=== PATIENT | male | born 1935 | race Hispanic/Latino ===

== ENCOUNTER 2017-04-28 10:38 | Inpatient (IN) | payer MEDICARE, OTHER ==
[2017-04-28 12:21] LABS: VENOUS BLOOD GAS BASE EXCESS 3.7 mmol/L (0.0-2.0); VENOUS BLOOD GAS PO2 27 mm/Hg (30-55); VENOUS BLOOD PH 7.43 (7.32-7.43)
--- NOTE | 2017-04-28 12:23 | ED PDOC ---
Arrival/HPI - General Chief Complaint: Trauma Time Seen by Provider: 04/28/17 10:58 Historian: Patient - History of Present Illness Narrative History of Present Illness (Text): 04/28/17 12:18 81yo male with PMHx of hypertension biba with complaint of generalized weakness. He states he had cold symptoms the past few days, and when he tried to get out of bed this morning he was took weak and he fell. He denies any focal weakness, pain, fever, chills, nausea, vomiting, abdominal pain, chest pain, dizziness, headache, LOC, any other complaint. Past Medical History - Provider Review Nursing Documentation Reviewed: Yes - Infectious Disease Hx of Infectious Diseases: None - Cardiac Hx Cardiac Disorders: Yes Hx Hypertension: Yes - Pulmonary Hx Respiratory Disorders: No - Neurological Hx Neurological Disorder: No - HEENT Hx HEENT Disorder: No - Renal Hx Renal Disorder: No - Endocrine/Metabolic Hx Endocrine Disorders: No - Hematological/Oncological Hx Blood Disorders: No - Integumentary Hx Dermatological Disorder: No - Musculoskeletal/Rheumatological Hx Musculoskeletal Disorders: No - Gastrointestinal Hx Gastrointestinal Disorders: No - Genitourinary/Gynecological Hx Genitourinary Disorders: No - Psychiatric Hx Psychophysiologic Disorder: No Hx Substance Use: No - Surgical History Hx Orthopedic Surgery: Yes - Anesthesia Hx Anesthesia: Yes Hx Anesthesia Reactions: No Family/Social History - Physician Review Nursing Documentation Reviewed: Yes Family/Social History: Unknown Family HX Smoking Status: Never Smoked Hx Alcohol Use: No Hx Substance Use: No Allergies/Home Meds Allergies/Adverse Reactions: Allergies No Known Allergies Allergy (Verified 02/13/16 15:25) Home Medications: Home Meds Medication Instructions Recorded Confirmed Propranolol [Inderal] 20 mg PO BID 02/13/16 04/28/17 ALPRAZolam [Xanax] 0.25 mg PO BID 04/28/17 04/28/17 Amoxicillin [Amoxil 500 mg Cap] 4 tab PO ONCE 04/28/17 04/28/17 Cholecalciferol [Vitamin D 1000 IU] 50,000 units PO QWK 04/28/17 04/28/17 Cyanocobalamin [Vitamin B12 1000 1,000 mcg SQ QWK 04/28/17 04/28/17 mcg Tab] Febuxostat [Uloric] 40 mg PO DAILY 04/28/17 04/28/17 Rosuvastatin Calcium [Crestor] 5 mg PO DAILY 04/28/17 04/28/17 hydroCHLOROthiazide [Hydrodiuril] 25 mg PO DAILY 04/28/17 04/28/17 Review of Systems - Physician Review All systems were reviewed & negative as marked: Yes - Review of Systems Constitutional: Fatigue Eyes: Normal ENT: Normal Respiratory: Cough. absent: SOB, Sputum, Wheezing Cardiovascular: Normal Gastrointestinal: Normal Genitourinary Male: Normal Musculoskeletal: Normal Skin: Normal Neurological: Normal Endocrine: Normal Hemo/Lymphatic: Normal Psychiatric: Normal Physical Exam Vital Signs Reviewed: Yes Vital Signs Temp Pulse Resp BP Pulse Ox 04/28/17 15:03 99.5 F 90 20 135/75 96 04/28/17 12:13 103.4 F H 100 H 18 162/87 H 99 Temperature: Afebrile Blood Pressure: Normal Pulse: Regular Respiratory Rate: Normal Appearance: Positive for: Well-Appearing, Non-Toxic, Comfortable Pain Distress: None Mental Status: Positive for: Alert and Oriented X 3 - Systems Exam Head: Present: Atraumatic, Normocephalic Pupils: Present: PERRL Extroacular Muscles: Present: EOMI Conjunctiva: Present: Normal Mouth: Present: Moist Mucous Membranes Neck: Present: Normal Range of Motion Respiratory/Chest: Present: Clear to Auscultation, Good Air Exchange. No: Respiratory Distress, Accessory Muscle Use, Wheezes, Decreased Breath Sounds, Rales, Retracting, Rhonchi Cardiovascular: Present: Regular Rate and Rhythm, Normal S1, S2. No: Murmurs Abdomen: Present: Normal Bowel Sounds. No: Tenderness, Distention, Peritoneal Signs Back: Present: Normal Inspection Upper Extremity: Present: Normal Inspection. No: Cyanosis, Edema Lower Extremity: Present: Normal Inspection. No: Edema Neurological: Present: GCS=15, CN II-XII Intact, Speech Normal Skin: Present: Warm, Dry, Normal Color. No: Rashes Psychiatric: Present: Alert, Oriented x 3, Normal Insight, Normal Concentration Medical Decision Making ED Course and Treatment: 04/28/17 19:42 Pt appear weak, plae in ED. He was febrile on presentation and fever improved with antipyretic. Pt met 2/4 septic criteria. Code sepsis was called. He was started on Vanco and Maxipime. His source of sepsis is not clear at this time. His CPK was elevated and he was hydrated. Source of the blood in his UA is unknown at this time. He will need a further evaluation by a urologist. He will be admitted for further treatment and evaluation. Head CT IMPRESSION: No acute intracranial hemorrhage. Moderate to significant confluent white matter ischemic changes which extend peripherally into the white matter tracts of both basal nuclei. Probable dilated perivascular space left inferolateral basal ganglia. The there may also be a few scattered chronic bilateral basal nuclei lacunar type infarcts as well. Moderate generalized volume loss. Mucoperiosteal inflammatory changes within all the paranasal sinuses ; progressed within the ethmoid and frontal sinuses and right chamber sphenoid sinus CXR - Cardiomegaly with small pleural effsion. Case was DW Dr. Cunningham who is covering for Dr. Connor and he aceepted pt. - Lab Interpretations Lab Results: 04/28/17 11:30 04/28/17 12:40 Lab Results 04/28/17 13:34: Urine Color Yellow, Urine Appearance Sl cloudy, Urine pH 5.5, Ur Specific [place] >= 1.030, Urine Protein 100 H, Urine Glucose (UA) Negative, Urine Ketones 40 H, Urine Blood Large H, Urine Nitrate Negative, Urine Bilirubin Negative, Urine Urobilinogen 0.2, Ur Leukocyte Esterase Negative, Urine RBC 25 - 30, Urine WBC 5 - 10, Ur Epithelial Cells 4 - 5, Urine Bacteria Mod 04/28/17 13:10: PT 12.9 H, INR 1.18 H, APTT 25.9 04/28/17 12:40: Sodium 137, Chloride 96 L, Potassium 3.7, Carbon Dioxide 28, Anion Gap 17, BUN 20, Creatinine 1.0, Est GFR ( Amer) > 60, Est GFR (Non- Af Amer) > 60, Random Glucose 104, Calcium 9.5, Total Bilirubin 0.9, AST 86 H, ALT 55, Alkaline Phosphatase 68, Lactate Dehydrogenase 1263 H, Total Creatine Kinase 6650 H, CK-MB (CK-2) 8.8 H, CK-MB (CK-2) % 0.1 L, Troponin I 0.05, Total Protein 7.9, Albumin 4.3, Globulin 3.5, Albumin/Globulin Ratio 1.2 04/28/17 11:30: pO2 27 L, VBG pH 7.43, VBG pCO2 43.0, VBG HCO3 28.5 H, VBG Total CO2 29.8 H, VBG O2 Sat (Calc) 64.4, VBG Base Excess 3.7 H, VBG Potassium 4.2, Sodium 137.0, Chloride 98.0, Glucose 110, Lactate 2.7 H, FiO2 21.0, Venous Blood Potassium 4.2 04/28/17 11:30: Influenza Typ A,B (EIA) Negative for flu a/b 04/28/17 11:30: WBC 9.5, RBC 6.72 H, Hgb 14.5, Hct 43.1, MCV 64.1 L, MCH 21.6 L , MCHC 33.6, RDW 16.8 H, Plt Count 161, Gran % 78.1 H, Lymph % (Auto) 13.1 L, [place] % (Auto) 8.2 H, Eos % (Auto) 0.1 L, Baso % (Auto) 0.5, Gran # 7.38 H, Lymph # 1.2, [place] # 0.8 H, Eos # 0.0, Baso # 0.05 - RAD Interpretation Radiology Orders: 04/28/17 11:53 HEAD W/O CONTRAST [CT] Stat 04/28/17 11:54 CHEST PORTABLE [RAD] Stat - Medication Orders Current Medication Orders: Alprazolam (Xanax) 0.25 mg PO BID MILENA PRN Reason: Protocol Stop: 05/05/17 18:01 Last Admin: 04/28/17 18:53 Dose: 0.25 mg Behavioural Document 04/28/17 18:53 (Rec: 04/28/17 18:53 [id number] Maintenance Maintenance Dose Yes Home Med (Home Med) 1 unit PO DAILY [facility] Sodium Chloride (Sodium Chloride 0.9%) 1,000 mls @ 80 mls/hr IV .[id number] MILENA Last Admin: 04/28/17 18:53 Dose: 80 mls/hr eMAR Start Stop Document 04/28/17 18:53 Y (Rec: 04/28/17 18:53 [id number]) Intravenous Solution Start Date 04/28/17 Start Time 18:53 Propranolol HCl (Inderal) 20 mg PO Q12 MILENA Discontinued Medications Acetaminophen (Tylenol 325mg Tab) 975 mg PO STAT STA Stop: 04/28/17 12:49 Last Admin: 04/28/17 13:40 Dose: 975 mg MAR Pain/Vitals Document 04/28/17 13:40 EQ (Rec: 04/28/17 13:40 EQ [id number]) Pain Reassessment Is This A Pain ReAssessment? No Sleep Is patient sleeping during reassessment? No Presence of Pain Presence of Pain Yes Sodium Chloride (Sodium Chloride 0.9%) 1,000 mls @ 999 mls/hr IV .Q1H1M STA Stop: 04/28/17 13:37 Last Admin: 04/28/17 13:40 Dose: 999 mls/hr eMAR Start Stop Document 04/28/17 13:40 EQ (Rec: 04/28/17 13:40 EQ [id number]) Intravenous Solution Start Date 04/28/17 Start Time 13:40 Cefepime HCl (Maxipime 2gm) 2 gm in 100 mls @ 100 mls/hr IVPB STAT STA PRN Reason: Protocol Stop: 04/28/17 14:22 Last Admin: 04/28/17 13:55 Dose: 100 mls/hr eMAR Start Stop Document 04/28/17 13:55 EQ (Rec: 04/28/17 13:55 EQ [id number]) Intravenous Solution Start Date 04/28/17 Start Time 13:55 Vancomycin HCl (Vancomycin 1gm) 1 gm in 250 mls @ 167 mls/hr IVPB STAT STA PRN Reason: Protocol Stop: 04/28/17 14:51 Last Admin: 04/28/17 15:04 Dose: 167 mls/hr eMAR Start Stop Document 04/28/17 15:04 EQ (Rec: 04/28/17 15:04 EQ [id number]) Intravenous Solution Start Date 04/28/17 Start Time 15:04 Disposition/Present on Arrival - Present on Arrival Any Indicators Present on Arrival: No History of DVT/PE: No History of Uncontrolled Diabetes: No Urinary Catheter: No History of Decub. Ulcer: No History Surgical Site Infection Following: None - Disposition Have Diagnosis and Disposition been Completed?: Yes Diagnosis: Sepsis, Dehydration, Rhabdomyolysis, Sinusitis Disposition: HOSPITALIZED Disposition Time: 15:25 Patient Plan: Admission Patient Problems: Current Active Problems Problem Status Onset Dehydration Acute Rhabdomyolysis Acute Sepsis Acute Condition: FAIR
[2017-04-28 12:24] LABS: BASO # 0.05 K/mm3 (0.0-2.0); BASO % 0.5 % (0.0-3.0); EOS % 0.1 % (1.5-5.0); GRAN # 7.38 (1.4-6.5); GRAN % 78.1 % (50.0-68.0); HEMOGLOBIN 14.5 g/dL (14.0-18.0); LYMPH # 1.2 (1.2-3.4); LYMPH % 13.1 % (22.0-35.0); MEAN CELL VOLUME 64.1 fl (80.0-105.0); MEAN CORPUSCULAR HEMOGLOBIN 21.6 pg (25.0-35.0); MEAN CORPUSCULAR HGB CONC 33.6 g/dl (31.0-37.0); MONO # 0.8 (0.1-0.6); MONO % 8.2 % (1.0-6.0); PLATELET COUNT 161 10^3/uL (120.0-450.0); RBC 6.72 10^6/uL (3.5-6.1); RED CELL DISTRIBUTION WIDTH 16.8 % (11.5-14.5); WHITE BLOOD COUNT 9.5 10^3/ul (4.5-11.0)
[2017-04-28] MEDS ORDERED: Sodium Chloride 0.9% 1,000 ML IV STA (12:37)
[2017-04-28 13:06] LABS: ALB/GLOB RATIO 1.2 (1.1-1.8); ALBUMIN 4.3 g/dL (3.0-4.8); ALT/SGPT 55 U/L (7-56); AST/SGOT 86 U/L (17-59); BLOOD UREA NITROGEN 20 mg/dL (7-21); CALCIUM 9.5 mg/dL (8.4-10.5); GFR AFRICAN-AMERICAN > 60; GFR NON-AFRICAN AMERICAN > 60
[2017-04-28 13:15] LABS: TROPONIN I 0.05 ng/mL
[2017-04-28] MEDS ORDERED: Vancomycin 1gm in NS 250ml 1 GM/250 ML BAG IVPB STA (13:22)
[2017-04-28] MEDS ORDERED: Cefepime IV 2 gm in NS 2 GM/100 ML BAG IVPB STA (13:23)
[2017-04-28 13:36] LABS: CK MB% 0.1 % (2.5-3.0); CK-MB 8.8 ng/mL (0.0-3.6)
[2017-04-28 13:40] LABS: PH,URINE 5.5 (4.7-8.0); URINE BILIRUBIN NEGATIVE (NEGATIVE); URINE BLOOD LARGE (NEGATIVE); URINE GLUCOSE (UA) NEGATIVE (NEGATIVE); URINE LEUKOCYTE ESTERASE NEGATIVE Leu/uL (NEGATIVE); URINE NITRATE NEGATIVE (NEGATIVE); URINE PROTEIN 100 mg/dL (<30 mg/dL); URINE UROBILINOGEN 0.2 E.U./dL (<1 E.U./dL)
[2017-04-28 13:46] LABS: URINE APPEARANCE SL CLOUDY (CLEAR); URINE COLOR YELLOW (YELLOW)
[2017-04-28 13:47] LABS: URINE BACTERIA MOD (NEG); URINE RBC 25 - 30 /hpf (0-2)
[2017-04-28 14:00] LABS: INR 1.18 (0.93-1.08); PARTIAL THROMBOPLASTIN TIME 25.9 Seconds (25.1-36.5); PROTHROMBIN TIME 12.9 SECONDS (9.4-12.5)
--- NOTE | 2017-04-28 14:35 | CT ---
PROCEDURE: CT scan brain dated 04/28/2017 HISTORY: Head injury COMPARISON: Comparison made with CT scan brain 02/13/2016 TECHNIQUE: Axial computed tomography images were obtained through the head/brain without intravenous contrast. Radiation dose: Total exam DLP = 780.25 mGy-cm. This CT exam was performed using one or more of the following dose reduction techniques: Automated exposure control, adjustment of the mA and/or kV according to patient size, and/or use of iterative reconstruction technique. FINDINGS: HEMORRHAGE: No acute parenchymal, subarachnoid or extra-axial hemorrhage. BRAIN: Moderate to significant diffuse/confluent chronic white matter ischemic changes seen extending peripherally into the deep and subcortical white matter both cerebral hemispheres. There is also some extension of these changes into the white matter tracts of both basal nuclei. Probable dilated perivascular space right inferolateral basal ganglia however there may also be a few tiny chronic lacunar type infarcts scattered about both basal nuclei as well. Moderate generalized volume loss. VENTRICLES: No obstructive hydrocephalus. CALVARIUM: There are no acute calvarial fractures. Probable of fracture deformities of these nasal bones PARANASAL SINUSES: Progressive opacification ethmoid air complex extending superiorly into the frontal sinus. . Previously noted on mucosal thickening and small fluid level left maxillary antrum improved. Mild mucosal thickening right maxillary antrum. Progression mucosal thickening right chamber sphenoid sinus. Minor mucosal thickening left chamber sphenoid sinus. MASTOID AIR CELLS: Unremarkable as visualized. No inflammatory changes. OTHER FINDINGS: Orbits and contents unremarkable. IMPRESSION: No acute intracranial hemorrhage. Moderate to significant confluent white matter ischemic changes which extend peripherally into the white matter tracts of both basal nuclei. Probable dilated perivascular space left inferolateral basal ganglia. The there may also be a few scattered chronic bilateral basal nuclei lacunar type infarcts as well. Moderate generalized volume loss. Mucoperiosteal inflammatory changes within all the paranasal sinuses ; progressed within the ethmoid and frontal sinuses and right chamber sphenoid sinus
[2017-04-28 16:07] LABS: VENOUS BLOOD GAS BASE EXCESS 2.2 mmol/L (0.0-2.0); VENOUS BLOOD GAS PO2 54 mm/Hg (30-55); VENOUS BLOOD PH 7.41 (7.32-7.43)
--- NOTE | 2017-04-28 17:17 | RAD ---
HISTORY: cough COMPARISON: No prior study available for comparison. FINDINGS: LUNGS: Poor inspiration with low lung volumes, crowded bronchovascular markings and mild bibasilar atelectasis. Probable vascular calcification involving the brachiocephalic artery right upper lung field. Small right-sided effusion not excluded PLEURA: As above. No pneumothorax apparent. CARDIOVASCULAR: Cardiomegaly. OSSEOUS STRUCTURES: Multilevel degenerative spondylosis of the thoracic spine with moderate levoscoliosis centered in the upper thoracic region. . VISUALIZED UPPER ABDOMEN: Normal. OTHER FINDINGS: None. IMPRESSION: Cardiomegaly. Mild bibasilar atelectasis with questionable small effusion.
[2017-04-28] MEDS: Sodium Chloride 0.9% 1,000 ML IV SCH (18:53)
--- NOTE | 2017-04-28 19:21 | PCM.SEPTIC ---
Sepsis Progress Note - Reassessment Type Date of Evaluation: 04/28/17 Time of Evaluation: 19:00 Reassessment Type: Non-invasive reassessment - Non Invasive Reassessment Were the most recent vital sign reviewed: Yes Vital Sign (Latest): Temp Pulse Resp BP Pulse Ox 99.5 F 90 20 135/75 96 04/28/17 15:03 04/28/17 15:03 04/28/17 15:03 04/28/17 15:03 04/28/17 15:03 Cardiovascular: Yes: Regular Rate, Rhythm Respiratory: Yes: Normal Breath Sounds Capillary Refill: Normal (Less than 2 sec) Skin: Normal Color
[2017-04-28 19:44] VITALS: BMI 28.5
[2017-04-29] MEDS: Sodium Chloride 0.9% 1,000 ML IV SCH ×2 (06:08→18:44)
[2017-04-29 08:13] LABS: BASO # 0.05 K/mm3 (0.0-2.0); BASO % 0.7 % (0.0-3.0); EOS # 0.2 (0.0-0.7); EOS % 2.6 % (1.5-5.0); GRAN # 4.96 (1.4-6.5); GRAN % 66.5 % (50.0-68.0); LYMPH # 1.5 (1.2-3.4); LYMPH % 19.5 % (22.0-35.0); MEAN CELL VOLUME 63.8 fl (80.0-105.0); MEAN CORPUSCULAR HEMOGLOBIN 21.2 pg (25.0-35.0); MEAN CORPUSCULAR HGB CONC 33.2 g/dl (31.0-37.0); MONO # 0.8 (0.1-0.6); MONO % 10.7 % (1.0-6.0); PLATELET COUNT 160 10^3/uL (120.0-450.0); RBC 6.14 10^6/uL (3.5-6.1); RED CELL DISTRIBUTION WIDTH 16.7 % (11.5-14.5); WHITE BLOOD COUNT 7.5 10^3/ul (4.5-11.0)
[2017-04-29 08:30] LABS: BLOOD UREA NITROGEN 16 mg/dL (7-21); CALCIUM 8.3 mg/dL (8.4-10.5); GFR AFRICAN-AMERICAN > 60; GFR NON-AFRICAN AMERICAN > 60
[2017-04-29 10:04] LABS: CK MB% 0.1 % (2.5-3.0); CK-MB 16.1 ng/mL (0.0-3.6)
--- NOTE | 2017-04-29 10:12 | PN ---
DATE: SUBJECTIVE: The patient is in room 569, bed 1 [facility] in [place]. The patient is a 81-year-old man, he was found on the floor in his home. He was unable to get up. The patient has past history of hypertension, hyperuricemia, vitamin D and vitamin B12 deficiency. The patient has been also treated for orthopedic problems in the past. The patient was seen this morning, he is lethargic, but able to answer questions. PHYSICAL EXAMINATION: VITAL SIGNS: Pulse is 70, blood pressure is 137/78, his O2 sat is 96% on room air, and temperature is normal at 97.9, when he came in, his temperature was 102.9. CVS:S1,S2 present Lungs: clear to auscultation bilaterally Abd: soft, NTND PLAN: The patient had hematuria. He was placed on antibiotics. We will do ultrasound of the kidney. The patient is on medication. IV fluids are given the patient because he has elevated CPK secondary to being down on the floor for several hours. He had rhabdomyolysis. His condition seems to be clinically stable at this time. His overall prognosis is guarded. We will continue current management. MEDICATIONS: Consist of Inderal 20 mg b.i.d. The patient needs to be on Xanax 0.25 mg b.i.d. The patient's IV fluid is maintained to flush the kidney. Han Cunningham MD TIFF
[2017-04-29] MEDS: CRESTOR 5MG PO SCH (15:08)
[2017-04-29] MEDS: cefTRIAXone 1 gm 1 GM/100 ML BAG IVPB SCH (15:09)
[2017-04-29 16:48] LABS: PH,URINE 5.5 (4.7-8.0); URINE BILIRUBIN NEGATIVE (NEGATIVE); URINE BLOOD MODERATE (NEGATIVE); URINE GLUCOSE (UA) NEGATIVE (NEGATIVE); URINE LEUKOCYTE ESTERASE NEGATIVE Leu/uL (NEGATIVE); URINE NITRATE NEGATIVE (NEGATIVE); URINE PROTEIN TRACE mg/dL (<30 mg/dL)
[2017-04-29 16:54] LABS: URINE APPEARANCE CLEAR (CLEAR); URINE COLOR YELLOW (YELLOW)
[2017-04-29 17:12] LABS: URINE RBC 15 - 20 /hpf (0-2); URINE WBC 0 - 2 /hpf (0-6)
[2017-04-29 17:13] LABS: URINE BACTERIA NEG (NEG); URINE EPITHELIAL CELLS 0 - 2 /hpf (0-5)
[2017-04-30] MEDS: Sodium Chloride 0.9% 1,000 ML IV SCH ×3 (05:14→14:26)
[2017-04-30] MEDS ORDERED: Barium Sulfate Susp 2.1% w/v, 2.0% w/w 450 mL Bottle PO ONE (07:43)
--- NOTE | 2017-04-30 08:15 | CP.PCM.HP ---
History of Present Illness - History of Present Illness History of Present Illness: 82 year old male with history of hypertension, gout, hyperlipidemia presented to the Emergency Room after falling at home. He says he was lying on the floor for about 2 days before he was able to finally drag himself to a phone and call for help. He denies chest pain, shortness of breath. Present on Admission - Present on Admission Any Indicators Present on Admission: No History of DVT/PE: No History of Uncontrolled Diabetes: No Urinary Catheter: No Decubitus Ulcer Present: No Review of Systems - Cardiovascular Cardiovascular: absent: Chest Pain, Diaphoresis, Dyspnea - Respiratory Respiratory: absent: Cough, Dyspnea, Wheezing - Gastrointestinal Gastrointestinal: absent: Abdominal Pain, Nausea, Vomiting Past Patient History - Infectious Disease Hx of Infectious Diseases: None - Past Social History Smoking Status: Never Smoked - CARDIAC Hx Cardiac Disorders: Yes Hx Hypertension: Yes - PULMONARY Hx Respiratory Disorders: No - NEUROLOGICAL Hx Neurological Disorder: No - HEENT Hx HEENT Problems: No - RENAL Hx Chronic Kidney Disease: No - ENDOCRINE/METABOLIC Hx Endocrine Disorders: No - HEMATOLOGICAL/ONCOLOGICAL Hx Blood Disorders: No - INTEGUMENTARY Hx Dermatological Problems: No - MUSCULOSKELETAL/RHEUMATOLOGICAL Hx Musculoskeletal Disorders: No - GASTROINTESTINAL Hx Gastrointestinal Disorders: No - GENITOURINARY/GYNECOLOGICAL Hx Genitourinary Disorders: No - PSYCHIATRIC Hx Psychophysiologic Disorder: No Hx Substance Use: No - SURGICAL HISTORY Hx Orthopedic Surgery: Yes - ANESTHESIA Hx Anesthesia: Yes Hx Anesthesia Reactions: No Meds Home Medications: Home Medication List Medication Instructions Recorded Confirmed Type Amoxicillin/Clavulanate [Augmentin 1 tab PO BID #20 tab 05/02/17 Rx 875 MG-125 MG] Allergies/Adverse Reactions: Allergies Allergy/AdvReac Type Severity Reaction Status Date / Time No Known Allergies Allergy Verified 02/13/16 15:25 Physical Exam - Constitutional Appears: No Acute Distress - Head Exam Head Exam: ATRAUMATIC, NORMOCEPHALIC - Respiratory Exam Respiratory Exam: Clear to Auscultation Bilateral, NORMAL BREATHING PATTERN - Cardiovascular Exam Cardiovascular Exam: +S1, +S2 - GI/Abdominal Exam GI & Abdominal Exam: Normal Bowel Sounds, Soft. absent: Tenderness - Neurological Exam Neurological exam: Alert, Oriented x3 Results - Vital Signs Recent Vital Signs: Last Vital Signs Temp 97.7 F 04/30/17 00:00 Pulse 72 04/30/17 00:00 Resp 18 04/30/17 00:00 BP 138/80 04/30/17 00:00 Pulse Ox 93 L 04/30/17 00:00 - Labs Result Diagrams: 05/02/17 06:45 05/03/17 06:50 Labs: Laboratory Results - last 24 hr 04/29/17 04/29/17 04/29/17 07:30 07:30 07:30 WBC 7.5 D RBC 6.14 H Hgb 13.0 L Hct 39.2 L MCV 63.8 L MCH 21.2 L MCHC 33.2 RDW 16.7 H Plt Count 160 Gran % 66.5 Lymph % (Auto) 19.5 L [place] % (Auto) 10.7 H Eos % (Auto) 2.6 Baso % (Auto) 0.7 Gran # 4.96 Lymph # 1.5 [place] # 0.8 H Eos # 0.2 Baso # 0.05 Sodium 139 Potassium 3.9 Chloride 105 Carbon Dioxide 23 Anion Gap 16 BUN 16 Creatinine 0.8 Est GFR ( Amer) > 60 Est GFR (Non-Af Amer) > 60 Random Glucose 87 Calcium 8.3 L Total Creatine Kinase 68923 H CK-MB (CK-2) 16.1 H CK-MB (CK-2) % 0.1 L Prostate Specific Ag 0.6 Urine Color Urine Appearance Urine pH Ur Specific [place] Urine Protein Urine Glucose (UA) Urine Ketones Urine Blood Urine Nitrate Urine Bilirubin Urine Urobilinogen Ur Leukocyte Esterase Urine RBC Urine WBC Ur Epithelial Cells Urine Bacteria 04/29/17 04/30/17 14:40 07:00 WBC RBC Hgb Hct MCV MCH MCHC RDW Plt Count Gran % Lymph % (Auto) [place] % (Auto) Eos % (Auto) Baso % (Auto) Gran # Lymph # [place] # Eos # Baso # Sodium Potassium Chloride Carbon Dioxide Anion Gap BUN Creatinine Est GFR ( Amer) Est GFR (Non-Af Amer) Random Glucose Calcium Total Creatine Kinase 7415 H CK-MB (CK-2) CK-MB (CK-2) % Prostate Specific Ag Urine Color Yellow Urine Appearance Clear Urine pH 5.5 Ur Specific [place] 1.020 Urine Protein Trace H Urine Glucose (UA) Negative Urine Ketones Negative Urine Blood Moderate H Urine Nitrate Negative Urine Bilirubin Negative Urine Urobilinogen 2.0 H Ur Leukocyte Esterase Negative Urine RBC 15 - 20 Urine WBC 0 - 2 Ur Epithelial Cells 0 - 2 Urine Bacteria Neg Assessment & Plan - Assessment and Plan (Free Text) Assessment: Rhabdomyolysis Hematuria r/o UTI HTN HLP Gout Plan: Patient's CPK is elevated. Will start IV normal saline. Urine and blood cultures are ordered. continue IV Rocephin. continue inderal for hypertension. monitor CPK. - Date & Time Date: 04/28/17 Time: 17:45
[2017-04-30 08:23] LABS: CK MB% 0.1 % (2.5-3.0); CK-MB 9.5 ng/mL (0.0-3.6)
[2017-04-30 08:53] LABS: ALB/GLOB RATIO 1.2 (1.1-1.8); ALBUMIN 3.9 g/dL (3.0-4.8); ALT/SGPT 90 U/L (7-56); AST/SGOT 207 U/L (17-59); BILIRUBIN,DIRECT 0.4 mg/dL (0.0-0.4); BLOOD UREA NITROGEN 13 mg/dL (7-21); GFR AFRICAN-AMERICAN > 60; GFR NON-AFRICAN AMERICAN > 60; HDL CHOLESTEROL 33 mg/dL (29-60); MAGNESIUM 2.1 mg/dL (1.7-2.2); URIC ACID 4.4 mg/dL (3.5-8.5)
[2017-04-30 08:57] LABS: LDL CHOLESTEROL 62 mg/dL (0-129)
[2017-04-30 09:06] LABS: FREE T4 1.38 ng/dL (0.78-2.19); T4 7.7 ug/dL (5.5-11.0)
[2017-04-30] MEDS: cefTRIAXone 1 gm 1 GM/100 ML BAG IVPB SCH (09:55)
[2017-04-30] MEDS: CRESTOR 5MG PO SCH (09:56)
[2017-04-30] MEDS: Albuterol-Ipratrop 3 mg / 0.5 (3 ml) UD IH SCH ×3 (10:30→14:49)
[2017-04-30] MEDS ORDERED: Iohexol 350 MG/100 ML VIAL ONE (10:38)
--- NOTE | 2017-04-30 11:55 | CT ---
PROCEDURE: CT Chest, Abdomen and Pelvis with intravenous contrast HISTORY: ?SEPSIS/FEVER/RHABDO COMPARISON: None. TECHNIQUE: IV dose administered: 100 cc of Omni 350 Radiation dose: Total exam DLP = 1388 mGy-cm. This CT exam was performed using one or more of the following dose reduction techniques: Automated exposure control, adjustment of the mA and/or kV according to patient size, and/or use of iterative reconstruction technique. FINDINGS: CT CHEST WITH CONTRAST: LUNGS: Clear. No nodule, mass or consolidation. MEDIASTINUM: Unremarkable. Normal caliber aorta and pulmonary arterial trunk. No aortic dissection. Normal size heart. LYMPH NODES: Unremarkable. PLEURA: Unremarkable. No pneumothorax. No pleural fluid. BONES: Unremarkable. OTHER FINDINGS: None. CT ABDOMEN AND PELVIS: LIVER: Unremarkable. No gross lesion or ductal dilatation. There is fatty infiltration of the liver GALLBLADDER AND BILE DUCTS: Unremarkable. PANCREAS: Unremarkable. No gross lesion or ductal dilatation. SPLEEN: Unremarkable. ADRENALS: Unremarkable. No mass. KIDNEYS AND URETERS: Unremarkable. No hydronephrosis. No solid mass. VASCULATURE: Unremarkable. No aortic aneurysm. BOWEL: Unremarkable. No obstruction. No gross mural thickening. APPENDIX: Normal appendix. PERITONEUM: Unremarkable. No free fluid. No free air. LYMPH NODES: Unremarkable. No enlarged lymph nodes. BLADDER: Unremarkable. REPRODUCTIVE: Unremarkable. BONES: No acute fracture. OTHER FINDINGS: None. IMPRESSION: No acute findings
--- NOTE | 2017-04-30 13:42 | CP.PCM.PN ---
Subjective - Date & Time of Evaluation Date of Evaluation: 04/30/17 Time of Evaluation: 13:18 - Subjective Subjective: Carire Lawson, PGY1, Medicine Progress Note for Dr Connor: Patient seen and examined at bedside. No acute events overnight. This AM, pt reports that he feels better, however, he has not been ambulating since he was admitted to the hospital. States that he does get bilateral calf muscle spasms that led to the fall at home. Denies leg swelling, cp, sob, dark urine, myalgias , abdominal pain, urinary symptoms/gross hematuria. Pt is tolerating food well. Objective - Vital Signs/Intake and Output Vital Signs (last 24 hours): Temp Pulse Resp BP Pulse Ox 97.9 F 83 18 110/66 100 04/30/17 07:00 04/30/17 07:00 04/30/17 07:00 04/30/17 09:55 04/30/17 07:00 Intake and Output: 04/30/17 04/30/17 06:59 18:59 Intake Total 420 Output Total 600 Balance -180 - Medications Medications: Current Medications Acetaminophen (Tylenol 325mg Tab) 650 mg PO Q6H PRN PRN Reason: Fever >100.4 F Last Admin: 04/28/17 23:30 Dose: 650 mg Albuterol/Ipratropium (Duoneb 3 Mg/0.5 Mg (3 Ml) Ud) 3 ml IH [id number] [facility] Last Admin: 04/30/17 10:30 Dose: Not Given Alprazolam (Xanax) 0.25 mg PO BID [facility] PRN Reason: Protocol Stop: 05/05/17 18:01 Last Admin: 04/30/17 09:55 Dose: 0.25 mg Home Med (Home Med) 1 unit PO DAILY [facility] Last Admin: 04/30/17 09:56 Dose: Not Given Ceftriaxone Sodium (Rocephin 1 Gram Ivpb) 1 gm in 100 mls @ 100 mls/hr IVPB DAILY [facility] PRN Reason: Protocol Last Admin: 04/30/17 09:55 Dose: 100 mls/hr Sodium Chloride (Sodium Chloride 0.9%) 1,000 mls @ 150 mls/hr IV .Q6H40M [facility] Last Admin: 04/30/17 09:55 Dose: 150 mls/hr Propranolol HCl (Inderal) 20 mg PO Q12 [facility] Last Admin: 04/30/17 09:55 Dose: 20 mg - Labs Labs: 04/29/17 07:30 04/30/17 08:20 PT 12.9 SECONDS (9.4-12.5) H 04/28/17 13:10 INR 1.18 (0.93-1.08) H 04/28/17 13:10 APTT 25.9 Seconds (25.1-36.5) 04/28/17 13:10 - Constitutional Appears: Non-toxic, No Acute Distress, Younger Than Stated Age - Head Exam Head Exam: ATRAUMATIC, NORMOCEPHALIC - Eye Exam Eye Exam: EOMI, PERRL. absent: Conjunctival injection, Scleral icterus Pupil Exam: PERRL - ENT Exam ENT Exam: Mucous Membranes Moist - Respiratory Exam Respiratory Exam: Clear to Ausculation Bilateral. absent: Accessory Muscle Use , Wheezes, Respiratory Distress - Cardiovascular Exam Cardiovascular Exam: RRR, +S1, +S2. absent: Murmur - GI/Abdominal Exam GI & Abdominal Exam: Soft, Normal Bowel Sounds. absent: Distended, Tenderness, Mass, Rebound - Extremities Exam Extremities Exam: absent: Calf Tenderness, Joint Swelling, Pedal Edema, Tenderness - Back Exam Back Exam: NORMAL INSPECTION. absent: CVA tenderness (L), CVA tenderness (R) - Neurological Exam Neurological Exam: Alert, Awake, Oriented x3 Neuro motor strength exam: Left Upper Extremity: 5, Right Upper Extremity: 5, Left Lower Extremity: 5, Right Lower Extremity: 5 - Psychiatric Exam Psychiatric exam: Normal Affect, Normal Mood - Skin Skin Exam: Dry, Normal Color, Warm Assessment and Plan - Assessment and Plan (Free Text) Assessment: 82 years old male with hx of HTN, HLD, hyperuricemia, admitted for generalized weakness, rhabdomyolysis, hematuria: Generalized weakness: 2/2 orthostatic vs medication induced vs sepsis vs CVA vs age related deconditioning vs thyroid abnormalities - Pt febrile on admission, however, CXR, UA neg for infection. - CT head negative for acute changes. - Discontinued home statin, LDL 62 - Thyroid panel normal. - PT eval ordered, F/u recs Rhabdomyolysis: 2/2 fall at home (on floor for more than 16-20 hours) - UA + blood, f/u myoglobin - CPK 6650->28647->7415. - C/w IVF @ 150. Hx of Anxiety: - C.w home med Xanax and Inderal PPX: Protonix, SCDs Discussed with Dr Connor. Carrie Lawson, PGY1
--- NOTE | 2017-04-30 13:53 | US ---
PROCEDURE: Ultrasound of the Kidneys HISTORY: Hematuria COMPARISON: None available. TECHNIQUE: Grayscale imaging was performed. FINDINGS: RIGHT KIDNEY: Measures: 13.3 cm. Normal in size, contour and echogenicity. No stone, solid mass lesion or hydronephrosis visualized. LEFT KIDNEY: Measures: 12.3 cm. Normal in size, contour and echogenicity. No stone, solid mass lesion or hydronephrosis visualized. OTHER FINDINGS: None. IMPRESSION: Normal examination.
--- NOTE | 2017-04-30 14:08 | CT ---
PROCEDURE: CT SINUSES WITHOUT CONTRAST HISTORY: SINUSITIS COMPARISON: None TECHNIQUE: Contiguous axial CT images of the paranasal sinuses were obtained. Coronal and sagittal reformats were generated. Radiation dose: Total exam DLP = 577 mGy-cm. This CT exam was performed using one or more of the following dose reduction techniques: Automated exposure control, adjustment of the mA and/or kV according to patient size, and/or use of iterative reconstruction technique. FINDINGS: FRONTAL SINUSES: Complete opacification of the left frontal sinus and partial on the right ETHMOID SINUSES: Complete opacification SPHENOID SINUSES: Mucosal thickening and partial opacification. Mucous retention cyst on the right MAXILLARY SINUSES: Severe mucosal thickening SINUS DRAINAGE: Obstruction of the ostiomeatal complex bilaterally NASAL SEPTUM: Septal deviation to the left MASS: None. SKULL BASE: Unremarkable. TEMPORAL BONES: Middle ears and mastoid grossly unremarkable. OTHER FINDINGS: None. IMPRESSION: Blanco sinusitis
--- NOTE | 2017-04-30 21:27 | PN ---
DATE: 04/30/2017 LOCATION: The patient is seen in room 561, bed 1. SUBJECTIVE: The patient is complaining of sinus congestion, weakness, tiredness and fatigue. The patient is complaining of bilateral leg weakness and complaining of tiredness. Overnight nurse's notes were reviewed. The patient was seen from 04/28/[address] Cunningham for coverage. The patient was seen in room 569, bed 1. OBJECTIVE: VITAL SIGNS: T max in the last 24 to 48 hours is 102.9, down to 98.5 and 97.9, heart rate 71 to 73 to 83, blood pressure 110/66, 139/72, 124/92, 138/80, 107/69, 126/76, respiration 18, O2 sat 93% to 100% on room air. HEENT: Head is normocephalic, atraumatic. HEENT shows pink conjunctivae. Anicteric sclerae. Positive sinus tenderness noted bilaterally. No oropharyngeal lesions noted. No neck rigidity. CHEST: Kyphosis. LUNGS: Shows occasional rhonchi at the bases. CARDIOVASCULAR: S1, S2, regular rhythm. Questionable soft systolic murmur at left sternal border, right second intercostal space, left second intercostal space. ABDOMEN: Soft. Positive bowel sounds. GENITALIA: Male. RECTAL: Deferred. EXTREMITIES: Shows positive CHRIST stockings. NEUROLOGICAL: The patient is alert, awake, responsive, is able to move upper and lower extremity without assistance. Gait examination is not tested. Patient's case was referred for physical therapist. The patient was seen by physical therapist. MUSCULOSKELETAL: Shows a body mass index of 27. DIAGNOSTICS: From 04/30/2017, sodium 141, potassium 4.0, chloride 105, CO2 27, anion gap 13, BUN 13, creatinine 0.9, GFR greater than 60, glucose 113, uric acid 4.4, AST 207, ALT 90. CPK is down to 7415 from peak CPK of 15,061, cholesterol 119, LDL 62, triglyceride 156. PSA is normal. Thyroid profile is within normal limit. Blood and urine cultures are negative. The patient had CT of the sinuses and CAT scan of the chest, abdomen and pelvis. CT of the sinuses shows pansinusitis. CT of the chest, abdomen and pelvis was done with oral and intravenous contrast, results were reviewed, which shows fatty liver, otherwise unremarkable CAT scan. The patient had a renal ultrasound for evaluation of hematuria, which was negative. IMPRESSION: 1. Acute rhabdomyolysis secondary to fall. 2. Bilateral lower extremity weakness. 3. Status post fall. 4. Transient hypoxemia. 5. High-grade fever of 103.4. 6. Questionable systemic inflammatory response syndrome. 7. Granulocytosis. 8. Lactic acidosis (resolved). 9. Transaminitis. 10. Rhabdomyolysis with elevated CPK. 11. Proteinuria, hematuria, bacteriuria. 12. Fatty liver and hepatic steatosis. 13. Frontal sinus complete opacification, ethmoid sinus complete opacification and partial opacification of the sphenoid sinuses, and severe mucosal thickening of the maxillary sinus with obstruction of the ostiomeatal complex bilaterally. 14. Pansinusitis. 15. Chronic white matter ischemic disease of the brain extending into the deep subcortical white matter bilaterally in basal ganglia and basal nuclei. 16. Dilated perivascular space of the right inferolateral basal ganglia. 17. 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 18. Generalized volume loss. 19. Bibasilar atelectasis, small right-sided pleural effusion. 20. Cardiomegaly. 21. 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 22. Gait dysfunction. 23. History of anxiety. 24. Deconditioning. . PLAN: At this time, the patient has been ordered to repeat labs. The patient's case, infectious disease consultation ordered. TCU evaluation ordered. The patient is on DuoNeb nebulizer every 6 hours, Inderal 20 mg q.12, Protonix 40 mg daily Rocephin 1 gm IV daily. The patient is on IV fluid 0.9 normal saline 750 mL an hour. The patient has been ordered serial CPK. The patient is on Tylenol 650 q.6 p.r.n., Xanax 0.25 b.i.d. The patient is ordered chest PT, incentive spirometry. Heart-healthy diet, out of bed, CHRIST stockings, SCDs, physical therapy, occupational therapy ordered.. The patient has been ordered out of bed to chair.. The patient's further management will be dependent upon the patient's condition and the patient's response to therapeutic intervention and as per infectious disease recommendation. The patient has been updated about his condition, diagnosis, treatment plan, management plan at length, which he acknowledged.. The patient was updated about all the test results. The patient was advised further diagnostic therapeutic intervention required which he acknowledged and understand. At present, the patient is also been ordered ESR, C-reactive protein. The patient's blood cultures are negative at 48 hours, urine cultures are negative at 24 hours. Dictated and electronically signed, not read. Ortiz Connor MD
[2017-05-01] MEDS: Pantoprazole 40 mg EC Tab PO SCH (05:29)
[2017-05-01] MEDS: Albuterol-Ipratrop 3 mg / 0.5 (3 ml) UD IH SCH ×3 (07:26→20:50)
[2017-05-01 07:37] LABS: ALBUMIN 3.3 g/dL (3.0-4.8); ALT/SGPT 88 U/L (7-56); AST/SGOT 134 U/L (17-59); BILIRUBIN,DIRECT 0.3 mg/dL (0.0-0.4); BLOOD UREA NITROGEN 10 mg/dL (7-21); CALCIUM 8.7 mg/dL (8.4-10.5); GFR AFRICAN-AMERICAN > 60; GFR NON-AFRICAN AMERICAN > 60
[2017-05-01 08:10] LABS: CK MB% 0.3 % (2.5-3.0); CK-MB 9.2 ng/mL (0.0-3.6)
[2017-05-01] MEDS: cefTRIAXone 1 gm 1 GM/100 ML BAG IVPB SCH (09:10)
[2017-05-01] MEDS: CRESTOR 5MG PO SCH (09:59)
[2017-05-01] MEDS: Sodium Chloride 0.9% 1,000 ML IV SCH (10:03)
--- NOTE | 2017-05-01 10:26 | CP.PCM.PN ---
Subjective - Date & Time of Evaluation Date of Evaluation: 05/01/17 Time of Evaluation: 10:23 - Subjective Subjective: Carrie Lawson, PGY1, Medicine Progress Note for Dr Connor: Patient seen and examined at bedside. No acute events overnight. Pt and the bedside report that patient has been walking in his room yesterday. States that his weakness and leg muscular spasms have completely resolved. Denies leg swelling, cp, sob, dark urine, myalgias, abdominal pain, urinary symptoms/gross hematuria. Discussed with patient regarding PT evaluation, which recommended home with services vs TCU. Patient states that he would like to go home. Pt tolerating his PO diet well and had one loose watery BM yesterday (previous one on Saturday). Objective - Vital Signs/Intake and Output Vital Signs (last 24 hours): Temp Pulse Resp BP Pulse Ox 97.9 F 65 20 131/81 96 05/01/17 07:30 05/01/17 07:30 05/01/17 07:30 05/01/17 07:30 05/01/17 07:30 Intake and Output: 05/01/17 05/01/17 06:59 18:59 Intake Total 720 Output Total 2800 Balance -2080 - Medications Medications: Current Medications Acetaminophen (Tylenol 325mg Tab) 650 mg PO Q6H PRN PRN Reason: Fever >100.4 F Last Admin: 04/28/17 23:30 Dose: 650 mg Albuterol/Ipratropium (Duoneb 3 Mg/0.5 Mg (3 Ml) Ud) 3 ml IH [id number] [facility] Last Admin: 05/01/17 07:26 Dose: 3 ml Alprazolam (Xanax) 0.25 mg PO BID [facility] PRN Reason: Protocol Stop: 05/05/17 18:01 Last Admin: 05/01/17 09:09 Dose: 0.25 mg Home Med (Home Med) 1 unit PO DAILY [facility] Last Admin: 05/01/17 09:59 Dose: Not Given Ceftriaxone Sodium (Rocephin 1 Gram Ivpb) 1 gm in 100 mls @ 100 mls/hr IVPB DAILY [facility] PRN Reason: Protocol Last Admin: 05/01/17 09:10 Dose: 100 mls/hr Sodium Chloride (Sodium Chloride 0.9%) 1,000 mls @ 150 mls/hr IV .Q6H40M [facility] Last Admin: 05/01/17 10:03 Dose: Not Given Pantoprazole Sodium (Protonix Ec Tab) 40 mg PO 0600 [facility] Last Admin: 05/01/17 05:29 Dose: 40 mg Propranolol HCl (Inderal) 20 mg PO Q12 [facility] Last Admin: 05/01/17 09:09 Dose: 20 mg - Labs Labs: 04/29/17 07:30 05/01/17 06:00 PT 12.9 SECONDS (9.4-12.5) H 04/28/17 13:10 INR 1.18 (0.93-1.08) H 04/28/17 13:10 APTT 25.9 Seconds (25.1-36.5) 04/28/17 13:10 - Constitutional Appears: Non-toxic, No Acute Distress - Head Exam Head Exam: ATRAUMATIC, NORMOCEPHALIC - Eye Exam Eye Exam: EOMI, PERRL. absent: Conjunctival injection, Scleral icterus Pupil Exam: PERRL - ENT Exam ENT Exam: Mucous Membranes Moist - Neck Exam Neck Exam: Full ROM - Respiratory Exam Respiratory Exam: Clear to Ausculation Bilateral. absent: Accessory Muscle Use , Respiratory Distress - Cardiovascular Exam Cardiovascular Exam: RRR, +S1, +S2. absent: Murmur - GI/Abdominal Exam GI & Abdominal Exam: Soft, Normal Bowel Sounds. absent: Distended, Guarding, Tenderness, Organomegaly, Rebound - Extremities Exam Extremities Exam: absent: Calf Tenderness, Pedal Edema - Back Exam Back Exam: NORMAL INSPECTION - Neurological Exam Neurological Exam: Alert, Awake, CN II-XII Intact, Normal Gait, Oriented x3. absent: Motor Sensory Deficit - Psychiatric Exam Psychiatric exam: Normal Affect, Normal Mood - Skin Skin Exam: Dry, Normal Color, Warm Assessment and Plan - Assessment and Plan (Free Text) Assessment: 82 years old male with hx of HTN, HLD, hyperuricemia, admitted for generalized weakness, rhabdomyolysis, hematuria: Generalized weakness: 2/2 orthostatic vs medication induced (lasix??) vs sepsis vs CVA vs age related deconditioning vs thyroid abnormalities - Pt febrile on admission, however, CXR neg for infiltrates, UA mod bacteria and few wbcs (contaminated since + epithelial cells), neg leuk esterase and nitrate. - CT head negative for acute changes. - CT chest/abd/pelvis neg. Sinus CT reveals pansinusitis. ID consulted. Will f/ u recs. - Discontinued home statin, LDL 62 - Blood cultures and urine culture NTD. - Thyroid panel normal. - ESR 42, CRP >15. - Triglycerides 156, Cholesterol 119, LDL 62, HDL 33 - PT recommends TCU or home with services. Discussed with patient, prefers going home. Consider SW eval since pt lives alone at home, has scarce friends/ family to help him. Watery loose stool: 2/2 C diff vs excess fluid intake - Pt on Rocephin since admission for a mild UTI - Will send for C diff and stool culture. - Cont to monitor Rhabdomyolysis: 2/2 fall at home (on floor for more than 16-20 hours) - UA + blood, mod bacteria, neg leuk esterase and nitrate. F/u myoglobin. - CPK 6650->04690->7415->2800 today. - C/w IVF @ 150. Hx of Anxiety: - C.w home med Xanax and Inderal PPX: Protonix, SCDs Dispo: Patient lives alone in a 2 family house, with owners living in 2nd apartment. Has few friends living nearby. PT recommends TCU vs HWS. Pt wants to go home. Discussed with Dr Connor. Carrie Lawson, PGY1
[2017-05-01 11:02] LABS: BASO # 0.04 K/mm3 (0.0-2.0); BASO % 0.7 % (0.0-3.0); EOS # 0.7 (0.0-0.7); EOS % 11.5 % (1.5-5.0); GRAN # 2.74 (1.4-6.5); GRAN % 48.4 % (50.0-68.0); HEMOGLOBIN 11.9 g/dL (14.0-18.0); LYMPH # 1.8 (1.2-3.4); LYMPH % 31.1 % (22.0-35.0); MEAN CELL VOLUME 63.9 fl (80.0-105.0); MEAN CORPUSCULAR HGB CONC 32.8 g/dl (31.0-37.0); MONO # 0.5 (0.1-0.6); MONO % 8.3 % (1.0-6.0); PLATELET COUNT 174 10^3/uL (120.0-450.0); RBC 5.68 10^6/uL (3.5-6.1); RED CELL DISTRIBUTION WIDTH 16.7 % (11.5-14.5); WHITE BLOOD COUNT 5.7 10^3/ul (4.5-11.0)
[2017-05-01] MEDS: AMPicillin/Sulbactam 1.5gm 1 GM/100 ML BAG IVPB SCH ×3 (13:21→23:40)
--- NOTE | 2017-05-01 13:22 | CP.PCM.CON ---
<MichelleGurdeep - Last Filed: 05/01/17 13:29> History of Present Illness - History of Present Illness History of Present Illness: Infectious disease consultation. Attending: Dr. Baeza This is a 82 yo male with past medical hx of HTN, gout, HLD presenting with chief complaint of mechanical fall. ID consulted for pansinusitis. Pt lives alone in 2 family home. Pt was getting up from bed when he fell down onto the floor and could not get up. Pt was on ground for about a day and could not call for help. Pt also reports similar fall in January 2017. Pt reports he was finally able to call ambulance and he was brought into hospital. Head CT negative for acute bleed, sinus CT showed pansinusitis. Pt denies headaches, nasal discharge, eye pain, and sinus tenderness. Pt did have fever on admission and code sepsis was called. Pt seen and examined at bedside today, clinically improving. Feels better. Has not had fever since 04/28. PMH: HTN, gout, HLD PSH: sx for broken arm Allergies: NKDA FH: DC in family Social hx: Denies smoking, drinking, drug use. Born in [place]. Review of Systems - Review of Systems All systems: reviewed and no additional remarkable complaints except Review of Systems: negative except as stated in HPI. Past Patient History - Infectious Disease Hx of Infectious Diseases: None - Tetanus Immunizations Tetanus Immunization: Unknown - Past Medical History & Family History Past Medical History?: Yes Past Family History: Reviewed and not pertinent - Past Social History Smoking Status: Never Smoked Chewing Tobacco Use: No Cigar Use: No Alcohol: None Drugs: Denies Home Situation {Lives}: Alone Domestic Violence: Negative - CARDIAC Hx Cardiac Disorders: Yes Hx Hypercholesterolemia: Yes Hx Hypertension: Yes - PULMONARY Hx Respiratory Disorders: No - NEUROLOGICAL Hx Neurological Disorder: No - HEENT Hx HEENT Problems: No - RENAL Hx Chronic Kidney Disease: No - ENDOCRINE/METABOLIC Hx Endocrine Disorders: No - HEMATOLOGICAL/ONCOLOGICAL Hx Blood Disorders: No - INTEGUMENTARY Hx Dermatological Problems: No - MUSCULOSKELETAL/RHEUMATOLOGICAL Hx Musculoskeletal Disorders: No - GASTROINTESTINAL Hx Gastrointestinal Disorders: No - GENITOURINARY/GYNECOLOGICAL Hx Genitourinary Disorders: No - PSYCHIATRIC Hx Psychophysiologic Disorder: No Hx Substance Use: No - SURGICAL HISTORY Hx Orthopedic Surgery: Yes - ANESTHESIA Hx Anesthesia: Yes Hx Anesthesia Reactions: No Meds Allergies/Adverse Reactions: Allergies Allergy/AdvReac Type Severity Reaction Status Date / Time No Known Allergies Allergy Verified 02/13/16 15:25 - Medications Medications: Current Medications Acetaminophen (Tylenol 325mg Tab) 650 mg PO Q6H PRN PRN Reason: Fever >100.4 F Last Admin: 04/28/17 23:30 Dose: 650 mg Albuterol/Ipratropium (Duoneb 3 Mg/0.5 Mg (3 Ml) Ud) 3 ml IH [id number] [facility] Last Admin: 05/01/17 07:26 Dose: 3 ml Alprazolam (Xanax) 0.25 mg PO BID [facility] PRN Reason: Protocol Stop: 05/05/17 18:01 Last Admin: 05/01/17 09:09 Dose: 0.25 mg Home Med (Home Med) 1 unit PO DAILY [facility] Last Admin: 05/01/17 09:59 Dose: Not Given Sodium Chloride (Sodium Chloride 0.9%) 1,000 mls @ 150 mls/hr IV .Q6H40M [facility] Last Admin: 05/01/17 10:03 Dose: Not Given Ampicillin Sodium/Sulbactam Sodium (Unasyn) 1 gm in 100 mls @ 100 mls/hr IVPB Q6 [facility] PRN Reason: Protocol Pantoprazole Sodium (Protonix Ec Tab) 40 mg PO 0600 [facility] Last Admin: 05/01/17 05:29 Dose: 40 mg Propranolol HCl (Inderal) 20 mg PO Q12 [facility] Last Admin: 05/01/17 09:09 Dose: 20 mg Physical Exam - Constitutional Appears: Non-toxic, No Acute Distress - Head Exam Head Exam: ATRAUMATIC, NORMAL INSPECTION, NORMOCEPHALIC Additional comments: negative sinus tenderness. - Eye Exam Eye Exam: EOMI, Normal appearance - Neck Exam Neck exam: Positive for: Full Rom, Normal Inspection - Respiratory Exam Respiratory Exam: absent: Respiratory Distress - Cardiovascular Exam Cardiovascular Exam: +S1, +S2 - GI/Abdominal Exam GI & Abdominal Exam: Normal Bowel Sounds, Soft. absent: Tenderness - Extremities Exam Extremities exam: Positive for: full ROM, normal inspection - Neurological Exam Neurological exam: Alert, CN II-XII Intact - Psychiatric Exam Psychiatric exam: Normal Affect, Normal Mood - Skin Skin Exam: Dry, Intact, Normal Color, Warm Results - Vital Signs Recent Vital Signs: Last Vital Signs Temp 97.9 F 05/01/17 07:30 Pulse 65 05/01/17 07:30 Resp 20 05/01/17 07:30 BP 131/81 05/01/17 07:30 Pulse Ox 96 05/01/17 07:30 - Labs Result Diagrams: 05/01/17 10:59 05/01/17 06:00 Labs: Laboratory Results - last 24 hr 04/30/17 04/30/17 05/01/17 18:30 18:30 06:00 WBC RBC Hgb Hct MCV MCH MCHC RDW Plt Count Gran % Lymph % (Auto) Heard % (Auto) Eos % (Auto) Baso % (Auto) Gran # Lymph # Heard # Eos # Baso # ESR 42 H Sodium 143 Potassium 3.8 Chloride 108 H Carbon Dioxide 26 Anion Gap 12 BUN 10 Creatinine 0.8 Est GFR ( Amer) > 60 Est GFR (Non-Af Amer) > 60 Random Glucose 94 Calcium 8.7 Phosphorus 3.0 Magnesium 2.0 Total Bilirubin 0.6 Direct Bilirubin 0.3 AST 134 H D ALT 88 H Alkaline Phosphatase 49 Total Creatine Kinase 2800 H CK-MB (CK-2) 9.2 H CK-MB (CK-2) % 0.3 L C-React Prot High Sens > 15.00 H Total Protein 6.4 Albumin 3.3 Globulin 3.2 Albumin/Globulin Ratio 1.0 L 05/01/17 10:59 WBC 5.7 D RBC 5.68 Hgb 11.9 L Hct 36.3 L MCV 63.9 L MCH 21.0 L MCHC 32.8 RDW 16.7 H Plt Count 174 Gran % 48.4 L Lymph % (Auto) 31.1 Heard % (Auto) 8.3 H Eos % (Auto) 11.5 H Baso % (Auto) 0.7 Gran # 2.74 Lymph # 1.8 Heard # 0.5 Eos # 0.7 Baso # 0.04 ESR Sodium Potassium Chloride Carbon Dioxide Anion Gap BUN Creatinine Est GFR ( Amer) Est GFR (Non-Af Amer) Random Glucose Calcium Phosphorus Magnesium Total Bilirubin Direct Bilirubin AST ALT Alkaline Phosphatase Total Creatine Kinase CK-MB (CK-2) CK-MB (CK-2) % C-React Prot High Sens Total Protein Albumin Globulin Albumin/Globulin Ratio Assessment & Plan - Assessment and Plan (Free Text) Assessment: This is an 82 yo male with past medical hx of HTN, gout, HLD presenting from home s/p mechanical fall, found to have rhabdomyolysis. ID consulted for pansinusitis. 1. Pansinusitis -sinus CT shows stover sinusitis -pt is afebrile, no nasal discharge or sinus tenderness -likely chronic in nature -initially started on vanco and maxipime for code sepsis, subsequently discontinued -rapid flu negative -urine culture negative -urinary tract infection unlikely -we will discontinue rocephin -2 blood cultures negative x 48 hrs. -we will start IV unasyn 1 g q 6 hrs, dosing schedule to reflect short half life of penicillins discussed with Dr. Baeza <Steven Baeza - Last Filed: 05/01/17 16:12> Meds - Medications Medications: Current Medications Acetaminophen (Tylenol 325mg Tab) 650 mg PO Q6H PRN PRN Reason: Fever >100.4 F Last Admin: 04/28/17 23:30 Dose: 650 mg Albuterol/Ipratropium (Duoneb 3 Mg/0.5 Mg (3 Ml) Ud) 3 ml [facility]H [id number] Last Admin: 05/01/17 13:24 Dose: 3 ml Alprazolam (Xanax) 0.25 mg PO BID [facility] PRN Reason: Protocol Stop: 05/05/17 18:01 Last Admin: 05/01/17 09:09 Dose: 0.25 mg Home Med (Home Med) 1 unit PO DAILY [facility] Last Admin: 05/01/17 09:59 Dose: Not Given Sodium Chloride (Sodium Chloride 0.9%) 1,000 mls @ 150 mls/hr IV .Q6H40M [facility] Last Admin: 05/01/17 10:03 Dose: Not Given Ampicillin Sodium/Sulbactam Sodium (Unasyn) 1 gm in 100 mls @ 100 mls/hr IVPB Q6 [facility] PRN Reason: Protocol Last Admin: 05/01/17 13:21 Dose: 100 mls/hr Pantoprazole Sodium (Protonix Ec Tab) 40 mg PO 0600 [facility] Last Admin: 05/01/17 05:29 Dose: 40 mg Propranolol HCl (Inderal) 20 mg PO Q12 [facility] Last Admin: 05/01/17 09:09 Dose: 20 mg Results - Vital Signs Recent Vital Signs: Last Vital Signs Temp 97.9 F 05/01/17 07:30 Pulse 65 05/01/17 07:30 Resp 20 05/01/17 07:30 BP 131/81 05/01/17 07:30 Pulse Ox 96 05/01/17 07:30 - Labs Result Diagrams: 05/01/17 10:59 05/01/17 06:00 Labs: Laboratory Results - last 24 hr 04/30/17 04/30/17 04/30/17 15:30 18:30 18:30 WBC RBC Hgb Hct MCV MCH MCHC RDW Plt Count Gran % Lymph % (Auto) Heard % (Auto) Eos % (Auto) Baso % (Auto) Gran # Lymph # Heard # Eos # Baso # ESR 42 H Sodium Potassium Chloride Carbon Dioxide Anion Gap BUN Creatinine Est GFR ( Amer) Est GFR (Non-Af Amer) Random Glucose Calcium Phosphorus Magnesium Total Bilirubin Direct Bilirubin AST ALT Alkaline Phosphatase Total Creatine Kinase CK-MB (CK-2) CK-MB (CK-2) % C-React Prot High Sens > 15.00 H Total Protein Albumin Globulin Albumin/Globulin Ratio Urine Myoglobin TNP 05/01/17 05/01/17 06:00 10:59 WBC 5.7 D RBC 5.68 Hgb 11.9 L Hct 36.3 L MCV 63.9 L MCH 21.0 L MCHC 32.8 RDW 16.7 H Plt Count 174 Gran % 48.4 L Lymph % (Auto) 31.1 Heard % (Auto) 8.3 H Eos % (Auto) 11.5 H Baso % (Auto) 0.7 Gran # 2.74 Lymph # 1.8 Heard # 0.5 Eos # 0.7 Baso # 0.04 ESR Sodium 143 Potassium 3.8 Chloride 108 H Carbon Dioxide 26 Anion Gap 12 BUN 10 Creatinine 0.8 Est GFR ( Amer) > 60 Est GFR (Non-Af Amer) > 60 Random Glucose 94 Calcium 8.7 Phosphorus 3.0 Magnesium 2.0 Total Bilirubin 0.6 Direct Bilirubin 0.3 AST 134 H D ALT 88 H Alkaline Phosphatase 49 Total Creatine Kinase 2800 H CK-MB (CK-2) 9.2 H CK-MB (CK-2) % 0.3 L C-React Prot High Sens Total Protein 6.4 Albumin 3.3 Globulin 3.2 Albumin/Globulin Ratio 1.0 L Urine Myoglobin Assessment & Plan - Assessment and Plan (Free Text) Assessment: Infectious Diseases Attending Physician Attestation Patient seen and examined, discussed with medical claims analyst. I have reviewed the HPI, ROS, past medical, personal, social and family histories, physical exam, labs and imaging. I agree with the above findings, assessment and plan.
--- NOTE | 2017-05-01 22:12 | PN ---
DATE: 05/01/2017 LOCATION: The patient was seen in room 569, bed 1. SUBJECTIVE: The patient is out of bed to chair and the patient appears to have falling asleep while sitting up in the chair. According to nurse's notes, the patient refused bed alarm. Overnight nurse's notes were reviewed. The patient had no adverse events documented. The patient still complains of weakness and tiredness and nasal congestion. REVIEW OF SYSTEM: Thirteen system review was done, pertinent positives and negatives dictated above. PHYSICAL EXAMINATION: VITAL SIGNS: T-max 97.9; heart rate 65, 73, 71, 70; blood pressure 121/78, 131/81, 137/74, 110/60; respirations 20; O2 sat 96% on room air. HEENT: Head examination normocephalic, atraumatic. HEENT examination shows pinkish conjunctivae. Anicteric sclerae. No oropharyngeal lesion. No neck rigidity. Positive sinus tenderness. CHEST: Kyphosis. LUNGS: Shows occasional rhonchi at the bases. CARDIOVASCULAR: S1, S2, regular rhythm. Questionable soft systolic murmur, left sternal border, right second intercostal space, left sternal border. ABDOMEN: Soft. Positive bowel sounds. No hepatosplenomegaly noted. No organomegaly noted. No rebound tenderness. No costovertebral angle tenderness. GENITALIA: Male. RECTAL: Deferred. EXTREMITIES: Show no pitting edema. No calf tenderness. No Homans' sign. Positive CHRIST stockings. No clubbing, no sinuses noted. Motor strength is 5/5 in upper and lower extremity. VASCULAR: Palpable pulses. MUSCULOSKELETAL: Examination shows a body mass index of 27. Cranial nerves II through XII intact. Gait examination is not tested. PSYCHIATRIC: Positive for history of anxiety. DIAGNOSTICS: On 05/01/2017, WBC 5.7, hemoglobin and hematocrit 11.9 and 36.3, MCV 64, platelets 174. ESR is 42. Sodium 43, potassium 3.8, chloride 108, CO2 of 26, anion gap 12, BUN 10, creatinine 0.8, GFR greater than 60, glucose 94, calcium 8.7, phosphorus 3.0, magnesium 2.0. AST is down to 134 from 207, ALT 88. CPK is down to 2800 from a peak CPK of greater than 15,000. C-reactive protein is greater than 15. LFTs are normal. Thyroid panel is normal. PSA is negative. Influenza is negative. Blood and urine cultures are negative. The patient's CAT scan of the sinuses were noted. The patient was seen by Infectious Disease, Dr. Baeza, recommendations noted. IMPRESSION AND PLAN: 1. Status post fall. 2. Rhabdomyolysis secondary to fall. 3. Status post mechanical fall. 4. Severe symptomatic rhabdomyolysis with elevated CPK. 5. Pansinusitis. 6. Hypertension. 7. Hypoxemia. 8. Microcytic anemia. 9. Granulocytosis. 10. Elevated erythrocyte sedimentation rate of 42. 11. Hypoxemia. 12. Lactic acidosis. 13. Transaminitis. 14. Elevated C-reactive protein of greater than 15. 15. History of hyperlipidemia. 16. History of vitamin B12 deficiency. 17. Proteinuria. 18. Hematuria. Plan at this time, the patient is seen by Infectious Disease. The patient was started on Unasyn 1.5 g intravenous q. 6 hours. The patient has been ordered repeat labs. The patient has been ordered Transitional Care Unit evaluation. The patient is on DuoNeb nebulizer every 6 hours, Inderal 20 mg q. 12, Protonix 40 mg daily, intravenous fluid 0.9 normal saline at 150 mL an hour, Tylenol 650 q. 6 p.r.n. The patient is on ampicillin, Unasyn 1 g intravenous q. 6 hours as per Infectious Disease. The patient is on Xanax 0.25 b.i.d. The patient is on chest physical therapy, incentive spirometry. Heart-healthy diet, out of bed, thromboembolic disease stockings, sequential compression devices, occupational therapy, physical therapy ordered. The patient was seen by physical therapist. The patient's case referred to Transitional Care Unit. The patient updated about his condition, diagnoses, treatment plan, management plan at length and all questions concerned answered. The patient states that he is feeling better, but not back to baseline. At present, the patient's further management will be dependent upon the patient's clinical condition, hemodynamic status and as per the patient's response to therapeutic intervention as per the patient's diagnostic test results and as per recommendation by all the physicians involved in the care of the patient. Dictated and electronically signed, not read. Signing off, Ortiz Connor MD [facility] # [id number]
[2017-05-02 03:18] VITALS: RESP 18
[2017-05-02] MEDS: Albuterol-Ipratrop 3 mg / 0.5 (3 ml) UD IH SCH ×4 (03:58→22:29)
[2017-05-02] MEDS: Pantoprazole 40 mg EC Tab PO SCH (05:41)
[2017-05-02] MEDS: AMPicillin/Sulbactam 1.5gm 1 GM/100 ML BAG IVPB SCH ×4 (05:41→23:00)
[2017-05-02 07:14] LABS: BASO # 0.04 K/mm3 (0.0-2.0); BASO % 0.6 % (0.0-3.0); EOS # 0.5 (0.0-0.7); EOS % 7.7 % (1.5-5.0); GRAN # 3.14 (1.4-6.5); GRAN % 50.7 % (50.0-68.0); HEMOGLOBIN 12.3 g/dL (14.0-18.0); LYMPH # 2.1 (1.2-3.4); LYMPH % 33.3 % (22.0-35.0); MEAN CELL VOLUME 63.4 fl (80.0-105.0); MEAN CORPUSCULAR HGB CONC 33.1 g/dl (31.0-37.0); MONO # 0.5 (0.1-0.6); MONO % 7.7 % (1.0-6.0); PLATELET COUNT 192 10^3/uL (120.0-450.0); RBC 5.87 10^6/uL (3.5-6.1); RED CELL DISTRIBUTION WIDTH 16.5 % (11.5-14.5); WHITE BLOOD COUNT 6.2 10^3/ul (4.5-11.0)
[2017-05-02 07:55] LABS: ALB/GLOB RATIO 1.1 (1.1-1.8); ALBUMIN 3.4 g/dL (3.0-4.8); ALT/SGPT 85 U/L (7-56); AST/SGOT 99 U/L (17-59); BILIRUBIN,DIRECT 0.3 mg/dL (0.0-0.4); BLOOD UREA NITROGEN 12 mg/dL (7-21); GFR AFRICAN-AMERICAN > 60; GFR NON-AFRICAN AMERICAN > 60
[2017-05-02] MEDS: CRESTOR 5MG PO SCH (09:42)
--- NOTE | 2017-05-02 12:24 | CP.PCM.PN ---
Subjective - Date & Time of Evaluation Date of Evaluation: 05/02/17 Time of Evaluation: 12:16 - Subjective Subjective: Carrie Lawson, PGY1, Medicine Progress Note for Dr Connor: Patient seen and examined at bedside. No acute events overnight. Pt states that he has been ambulating in the hallways by self, reports normal formed 1 BM yesterday. Denies fever, chills, diarrhea, nausea, headache, nasal/chest congestion, leg swelling, cp, sob, dark urine, myalgias, abdominal pain, urinary symptoms/gross hematuria. Pt tolerating diet well. Objective - Vital Signs/Intake and Output Vital Signs (last 24 hours): Temp Pulse Resp BP Pulse Ox 98.0 F 71 18 141/85 95 05/02/17 07:30 05/02/17 09:42 05/02/17 07:30 05/02/17 09:42 05/02/17 07:30 Intake and Output: 05/02/17 05/02/17 06:59 18:59 Intake Total 4260 Output Total 2450 Balance 1810 - Medications Medications: Current Medications Acetaminophen (Tylenol 325mg Tab) 650 mg PO Q6H PRN PRN Reason: Fever >100.4 F Last Admin: 04/28/17 23:30 Dose: 650 mg Albuterol/Ipratropium (Duoneb 3 Mg/0.5 Mg (3 Ml) Ud) 3 ml IH [id number] [facility] Last Admin: 05/02/17 07:48 Dose: 3 ml Alprazolam (Xanax) 0.25 mg PO BID [facility] PRN Reason: Protocol Stop: 05/05/17 18:01 Last Admin: 05/02/17 09:42 Dose: 0.25 mg Home Med (Home Med) 1 unit PO DAILY [facility] Last Admin: 05/02/17 09:42 Dose: Not Given Sodium Chloride (Sodium Chloride 0.9%) 1,000 mls @ 150 mls/hr IV .Q6H40M [facility] Last Admin: 05/01/17 10:03 Dose: Not Given Ampicillin Sodium/Sulbactam Sodium (Unasyn) 1 gm in 100 mls @ 100 mls/hr IVPB Q6 [facility] PRN Reason: Protocol Last Admin: 05/02/17 05:41 Dose: 100 mls/hr Pantoprazole Sodium (Protonix Ec Tab) 40 mg PO 0600 [facility] Last Admin: 05/02/17 05:41 Dose: 40 mg Propranolol HCl (Inderal) 20 mg PO Q12 [facility] Last Admin: 05/02/17 09:42 Dose: 20 mg - Labs Labs: 05/02/17 06:45 05/02/17 06:45 PT 12.9 SECONDS (9.4-12.5) H 04/28/17 13:10 INR 1.18 (0.93-1.08) H 04/28/17 13:10 APTT 25.9 Seconds (25.1-36.5) 04/28/17 13:10 - Additional Findings Additional findings: - Constitutional Appears: Non-toxic, No Acute Distress - Head Exam Head Exam: ATRAUMATIC, NORMOCEPHALIC - Eye Exam Eye Exam: EOMI, PERRL. absent: Conjunctival injection, Scleral icterus Pupil Exam: PERRL - ENT Exam ENT Exam: Mucous Membranes Moist - Neck Exam Neck Exam: Full ROM - Respiratory Exam Respiratory Exam: Clear to Ausculation Bilateral. absent: Accessory Muscle Use , Respiratory Distress - Cardiovascular Exam Cardiovascular Exam: RRR, +S1, +S2. absent: Murmur - GI/Abdominal Exam GI & Abdominal Exam: Soft, Normal Bowel Sounds. absent: Distended, Guarding, Tenderness, Organomegaly, Rebound - Extremities Exam Extremities Exam: absent: Calf Tenderness, Pedal Edema - Back Exam Back Exam: NORMAL INSPECTION - Neurological Exam Neurological Exam: Alert, Awake, CN II-XII Intact, Normal Gait, Oriented x3. absent: Motor Sensory Deficit - Psychiatric Exam Psychiatric exam: Normal Affect, Normal Mood - Skin Skin Exam: Dry, Normal Color, Warm Assessment and Plan - Assessment and Plan (Free Text) Assessment: 82 years old male with hx of HTN, HLD, hyperuricemia, admitted for generalized weakness, rhabdomyolysis, hematuria: Generalized weakness: 2/2 orthostatic vs medication induced (lasix??) vs sepsis vs CVA vs age related deconditioning vs thyroid abnormalities - Pt febrile on admission, however, CXR neg for infiltrates, UA mod bacteria and few wbcs (contaminated since + epithelial cells), neg leuk esterase and nitrate. - CT head negative for acute changes. - Discontinued home statin, LDL 62 - Blood cultures and urine culture NTD. - Thyroid panel normal. - ESR 42, CRP >15. - Triglycerides 156, Cholesterol 119, LDL 62, HDL 33 - PT recommends TCU or home with services. Discussed with patient, prefers going home. Consider [facility] since pt lives alone at home, has scarce friends/ family to help him. Pansinusitis: - Sinus CT reveals pansinusitis. - ID consulted. Started on IV unasyn q 6h. Will f/u with switching to PO antibiotics. Watery loose stool, resolved: 2/2 C diff vs excess fluid intake - D/c rocephin - Pt had 1 formed BM yesterday. Cont to monitor. Rhabdomyolysis: 2/2 fall at home (on floor for more than 16-20 hours) - UA + blood, mod bacteria, neg leuk esterase and nitrate. F/u myoglobin. - CPK 6650->52672->7415->2800->1015 today. Hx of Anxiety: - C.w home med Xanax and Inderal PPX: Protonix, SCDs Dispo: Patient lives alone in a 2 family house, with owners living in 2nd apartment. Has few friends living nearby. PT recommends TCU vs [facility]. Pt wants to go home. Discussed with Dr Connor. Carrie Lawson, PGY1
[2017-05-02 12:51] LABS: CK MB% 0.7 % (2.5-3.0); CK-MB 7.1 ng/mL (0.0-3.6)
--- NOTE | 2017-05-02 13:47 | CP.PCM.PN ---
Subjective - Date & Time of Evaluation Date of Evaluation: 05/02/17 Time of Evaluation: 12:15 - Subjective Subjective: Comfortable on a chair, no facial pain, no nasal discharge, no cough currently, no fevers. Objective - Vital Signs/Intake and Output Vital Signs (last 24 hours): Temp Pulse Resp BP Pulse Ox 98 F 71 18 141/85 95 05/02/17 00:00 05/02/17 09:42 05/02/17 00:00 05/02/17 09:42 05/02/17 00:00 Intake and Output: 05/02/17 05/02/17 06:59 18:59 Intake Total 4260 Output Total 2450 Balance 1810 - Medications Medications: Current Medications Acetaminophen (Tylenol 325mg Tab) 650 mg PO Q6H PRN PRN Reason: Fever >100.4 F Last Admin: 04/28/17 23:30 Dose: 650 mg Albuterol/Ipratropium (Duoneb 3 Mg/0.5 Mg (3 Ml) Ud) 3 ml IH [id number] [facility] Last Admin: 05/02/17 07:48 Dose: 3 ml Alprazolam (Xanax) 0.25 mg PO BID [facility] PRN Reason: Protocol Stop: 05/05/17 18:01 Last Admin: 05/02/17 09:42 Dose: 0.25 mg Home Med (Home Med) 1 unit PO DAILY [facility] Last Admin: 05/02/17 09:42 Dose: Not Given Sodium Chloride (Sodium Chloride 0.9%) 1,000 mls @ 150 mls/hr IV .Q6H40M [facility] Last Admin: 05/01/17 10:03 Dose: Not Given Ampicillin Sodium/Sulbactam Sodium (Unasyn) 1 gm in 100 mls @ 100 mls/hr IVPB Q6 [facility] PRN Reason: Protocol Last Admin: 05/02/17 05:41 Dose: 100 mls/hr Pantoprazole Sodium (Protonix Ec Tab) 40 mg PO 0600 [facility] Last Admin: 05/02/17 05:41 Dose: 40 mg Propranolol HCl (Inderal) 20 mg PO Q12 [facility] Last Admin: 05/02/17 09:42 Dose: 20 mg - Labs Labs: 05/02/17 06:45 05/02/17 06:45 PT 12.9 SECONDS (9.4-12.5) H 12/31/17 13:10 INR 1.18 (0.93-1.08) H 04/28/17 13:10 APTT 25.9 Seconds (25.1-36.5) 04/28/17 13:10 - Constitutional Appears: Non-toxic - Head Exam Head Exam: NORMAL INSPECTION - ENT Exam ENT Exam: Mucous Membranes Moist - Neck Exam Neck Exam: absent: Meningismus - Respiratory Exam Respiratory Exam: Decreased Breath Sounds - Cardiovascular Exam Cardiovascular Exam: +S1, +S2 - GI/Abdominal Exam GI & Abdominal Exam: Soft. absent: Tenderness Assessment and Plan - Assessment and Plan (Free Text) Plan: Assessment R/O acute stover-sinusitis, improving HTN gout dyslipidemia Plan on Unasyn day 2 - can be switched to PO Augmentin to complete 7-10 days of therapy
[2017-05-02] MEDS: Sodium Chloride 0.9% 1,000 ML IV SCH ×2 (14:51→23:00)
--- NOTE | 2017-05-02 20:37 | PN ---
DATE: 05/02/2017 SUBJECTIVE: The patient is seen sitting up in the chair in room 569, bed 1. The patient is seen watching TV. The patient states that he is feeling better, less congested. The patient denies any chest pain or shortness of breath. Denies any weakness of leg pain. The patient was seen by the physical therapy. The patient refused physical therapy treatment. The patient was seen by the physical therapist. The patient declined physical therapy treatment. The patient was seen by the psych social worker yesterday. OBJECTIVE: VITAL SIGNS: T-max 98, heart rate 65 to 71, blood pressure 131/81, 121/78, 133/85, 130/82, 141/85, respiration 18, O2 sat 95% to 96%. HEENT: Head is normocephalic, atraumatic. Shows pink conjunctivae. Anicteric sclerae. No oropharyngeal lesion. NECK: No neck rigidity. CHEST: Kyphosis. LUNGS: Shows positive rhonchi bilaterally. CARDIOVASCULAR: S1, S2, regular rhythm. Questionable soft systolic murmur left sternal border, right second intercostal space. ABDOMEN: Soft. Positive bowel sounds. No epigastric, no periumbilical. No right and left upper quadrant tenderness. No guarding. No rigidity. No rebound tenderness. No hepatosplenomegaly. GENITALIA: Male. RECTAL: Deferred. EXTREMITIES: Shows no pitting edema, no calf tenderness, no Homans' sign. No clubbing, no cyanosis. MUSCULOSKELETAL: Shows a body mass index of 27. NEUROLOGIC: Cranial nerves II through XII intact. Gait examination is independent. VASCULAR: Palpate pulses. PSYCHIATRIC: Positive for history of anxiety. DIAGNOSTICS: On 05/02/2017; WBC 6.2, hemoglobin/hematocrit 12.3, 37.2, MCV 63, platelets 192. Sodium 43, potassium 3.9, chloride 105, CO2 28, anion gap 13, BUN 12, creatinine 0.95, 60, glucose 88, calcium 9.0, phosphorus 3.5, magnesium 2.0. AST is down to 99 from 207, ALT is down to 85. CPK is down to 1015 from peak of 15,000. Rest of the LFTs are normal. Microbiology; Clostridium difficile antigen and toxin are negative. Blood and urine cultures are negative. IMPRESSION AND PLAN: 1. Status post mechanical fall. 2. Severe symptomatic acute rhabdomyolysis. 3. Acute pansinusitis. 4. Hypertension. 5. Elevated erythrocyte sedimentation rate of 42. 6. Microcytic anemia. 7. Kyphosis. 8. Transient lactic acidosis. 9. Transaminitis. 10. Rhabdomyolysis. 11. Elevated C-reactive protein of greater than 15. 12. Hypertension. 13. Proteinuria. 14. Hematuria. 15. Bacteriuria. 16. Hepatic steatosis and fatty liver infiltration fatty infiltration of the liver. 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 18. Cerebral cortical atrophy of the brain. 19. Pansinusitis. PLAN: At this time, the patient was seen by the infectious disease. Their recommendations were noted. Upon discharge, the patient can be switched over to Augmentin. The patient at present, still getting treatment for acute symptomatic rhabdomyolysis with high-dose IV fluid. The patient has been ordered repeat labs for the morning. CURRENT MEDICATIONS: DuoNeb nebulizer every 6 hours, Inderal 20 mg q. 12 h., Protonix 40 mg daily, IV fluid 0.9 normal saline at 150 mL an hour, Tylenol 650 q. 6 h. p.r.n., Unasyn 1 g IV q. 6 h., Xanax 0.25 b.i.d. The patient at present will be continued on the above therapeutic intervention with normalization of the patient's CPK. The patient at present, once the patient's CPK is in safe range for discharge, the patient will be considered for discharge to home. The patient was updated about his condition, diagnosis, test results, recommendation by all the physicians involved in the care of the patient, which he acknowledged understood. All questions concerned answered. Dictated and electronically signed, not read. Ortiz Connor MD
[2017-05-02 22:37] VITALS: TEMP 98.2; O2SAT 96
[2017-05-03] MEDS: AMPicillin/Sulbactam 1.5gm 1 GM/100 ML BAG IVPB SCH ×2 (06:04→13:40)
[2017-05-03] MEDS: Pantoprazole 40 mg EC Tab PO SCH (06:04)
[2017-05-03 07:38] LABS: ALB/GLOB RATIO 1.1 (1.1-1.8); ALBUMIN 3.7 g/dL (3.0-4.8); ALT/SGPT 78 U/L (7-56); AST/SGOT 78 U/L (17-59); BILIRUBIN,DIRECT 0.3 mg/dL (0.0-0.4); BLOOD UREA NITROGEN 12 mg/dL (7-21); CALCIUM 9.2 mg/dL (8.4-10.5); GFR AFRICAN-AMERICAN > 60; GFR NON-AFRICAN AMERICAN > 60; MAGNESIUM 1.9 mg/dL (1.7-2.2)
[2017-05-03 07:47] LABS: CK MB% 1.1 % (2.5-3.0); CK-MB 5.2 ng/mL (0.0-3.6)
[2017-05-03] MEDS: Albuterol-Ipratrop 3 mg / 0.5 (3 ml) UD IH SCH ×2 (08:41→13:49)
[2017-05-03] MEDS: CRESTOR 5MG PO SCH (10:17)
[2017-05-03 10:18] VITALS: BP 132/68; PULSE 65
--- NOTE | 2017-05-03 10:44 | CP.PCM.DIS ---
Provider - Provider Date of Admission: 04/28/17 15:12 Attending physician: Ortiz Connor MD Primary care physician: Ortiz Connor MD Consults: JASMIN Nuno Time Spent in preparation of Discharge (in minutes): 35 Diagnosis - Discharge Diagnosis (1) Weakness Status: Acute (2) Rhabdomyolysis Status: Acute (3) Sinusitis Status: Acute Hospital Course - Lab Results Lab Results: Micro Results 05/01/17 14:00 Stool C. difficile Antigen & Toxin A,B (M - Final Most Recent Lab Values WBC 6.2 10^3/ul (4.5-11.0) 05/02/17 06:45 RBC 5.87 10^6/uL (3.5-6.1) 05/02/17 06:45 Hgb 12.3 g/dL (14.0-18.0) L 05/02/17 06:45 Hct 37.2 % (42.0-52.0) L 05/02/17 06:45 MCV 63.4 fl (80.0-105.0) L 05/02/17 06:45 MCH 21.0 pg (25.0-35.0) L 05/02/17 06:45 MCHC 33.1 g/dl (31.0-37.0) 05/02/17 06:45 RDW 16.5 % (11.5-14.5) H 05/02/17 06:45 Plt Count 192 10^3/uL (120.0-450.0) 05/02/17 06:45 Gran % 50.7 % (50.0-68.0) 05/02/17 06:45 Lymph % (Auto) 33.3 % (22.0-35.0) 05/02/17 06:45 Elliott % (Auto) 7.7 % (1.0-6.0) H 05/02/17 06:45 Eos % (Auto) 7.7 % (1.5-5.0) H 05/02/17 06:45 Baso % (Auto) 0.6 % (0.0-3.0) 05/02/17 06:45 Gran # 3.14 (1.4-6.5) 05/02/17 06:45 Lymph # 2.1 (1.2-3.4) 05/02/17 06:45 Elliott # 0.5 (0.1-0.6) 05/02/17 06:45 Eos # 0.5 (0.0-0.7) 05/02/17 06:45 Baso # 0.04 K/mm3 (0.0-2.0) 05/02/17 06:45 ESR 42 mm/hr (0.00-15.0) H 04/30/17 18:30 PT 12.9 SECONDS (9.4-12.5) H 04/28/17 13:10 INR 1.18 (0.93-1.08) H 04/28/17 13:10 APTT 25.9 Seconds (25.1-36.5) 04/28/17 13:10 pO2 54 mm/Hg (30-55) 04/28/17 15:40 VBG pH 7.41 (7.32-7.43) 04/28/17 15:40 VBG pCO2 43.0 (40-60) 04/28/17 15:40 VBG HCO3 27.3 mmol/l (21-28) 04/28/17 15:40 VBG Total CO2 28.6 mmol.L (22-28) H 04/28/17 15:40 VBG O2 Sat (Calc) 92.4 % (40-65) H 04/28/17 15:40 VBG Base Excess 2.2 mmol/L (0.0-2.0) H 04/28/17 15:40 VBG Potassium 3.8 mmol/L (3.6-5.2) 04/28/17 15:40 Sodium 135.0 mmol/L (132-148) 04/28/17 15:40 Chloride 102.0 mmol/L (98-107) 04/28/17 15:40 Glucose 114 mg/dl (75-110) H 04/28/17 15:40 Lactate 1.3 mmol/L (0.7-2.1) 04/28/17 15:40 FiO2 21.0 % 04/28/17 15:40 Sodium 144 mmol/L (132-148) 05/03/17 06:50 Potassium 4.0 mmol/L (3.6-5.0) 05/03/17 06:50 Chloride 106 mmol/L (98-107) 05/03/17 06:50 Carbon Dioxide 29 mmol/L (21-33) 05/03/17 06:50 Anion Gap 12 (10-20) 05/03/17 06:50 BUN 12 mg/dL (7-21) 05/03/17 06:50 Creatinine 0.9 mg/dl (0.8-1.5) 05/03/17 06:50 Est GFR ( Amer) > 60 05/03/17 06:50 Est GFR (Non-Af Amer) > 60 05/03/17 06:50 Random Glucose 87 mg/dL (70-110) 05/03/17 06:50 Uric Acid 4.4 mg/dL (3.5-8.5) 04/30/17 08:20 Calcium 9.2 mg/dL (8.4-10.5) 05/03/17 06:50 Phosphorus 3.4 mg/dL (2.5-4.5) 05/03/17 06:50 Magnesium 1.9 mg/dL (1.7-2.2) 05/03/17 06:50 Total Bilirubin 0.7 mg/dL (0.2-1.3) 05/03/17 06:50 Direct Bilirubin 0.3 mg/dL (0.0-0.4) 05/03/17 06:50 AST 78 U/L (17-59) H D 05/03/17 06:50 ALT 78 U/L (7-56) H 05/03/17 06:50 Alkaline Phosphatase 46 U/L (38-126) 05/03/17 06:50 Lactate Dehydrogenase 1263 U/L (333-699) H 04/28/17 12:40 Total Creatine Kinase 454 U/L (35-230) H 05/03/17 06:50 CK-MB (CK-2) 5.2 ng/mL (0.0-3.6) H 05/03/17 06:50 CK-MB (CK-2) % 1.1 % (2.5-3.0) L 05/03/17 06:50 Myoglobin 236 mcg/L (< or = 95) H 05/01/17 06:00 Troponin I 0.05 ng/mL 04/28/17 12:40 C-React Prot High Sens > 15.00 mg/L (1.00-3.00) H 04/30/17 18:30 Total Protein 7.0 g/dL (5.8-8.3) 05/03/17 06:50 Albumin 3.7 g/dL (3.0-4.8) 05/03/17 06:50 Globulin 3.3 gm/dL 05/03/17 06:50 Albumin/Globulin Ratio 1.1 (1.1-1.8) 05/03/17 06:50 Triglycerides 156 mg/dL (35-160) 04/30/17 08:20 Cholesterol 119 mg/dL (130-200) L 04/30/17 08:20 LDL Cholesterol Direct 62 mg/dL (0-129) 04/30/17 08:20 HDL Cholesterol 33 mg/dL (29-60) 04/30/17 08:20 Prostate Specific Ag 0.6 ng/mL (0.00-2.5) 04/29/17 07:30 Free T4 1.38 ng/dL (0.78-2.19) 04/30/17 08:20 Thyroxine (T4) 7.7 ug/dL (5.5-11.0) 04/30/17 08:20 TSH 3rd Generation 3.30 mIU/mL (0.46-4.68) 04/30/17 08:20 Venous Blood Potassium 3.8 mmol/L (3.6-5.2) 04/28/17 15:40 Urine Color Yellow (YELLOW) 04/29/17 14:40 Urine Appearance Clear (CLEAR) 04/29/17 14:40 Urine pH 5.5 (4.7-8.0) 04/29/17 14:40 Ur Specific [place] 1.020 (1.005-1.035) 04/29/17 14:40 Urine Protein Trace mg/dL (<30 mg/dL) H 04/29/17 14:40 Urine Glucose (UA) Negative mg/dL (NEGATIVE) 04/29/17 14:40 Urine Ketones Negative mg/dL (NEGATIVE) 04/29/17 14:40 Urine Blood Moderate (NEGATIVE) H 04/29/17 14:40 Urine Nitrate Negative (NEGATIVE) 04/29/17 14:40 Urine Bilirubin Negative (NEGATIVE) 04/29/17 14:40 Urine Urobilinogen 2.0 E.U./dL (<1 E.U./dL) H 04/29/17 14:40 Ur Leukocyte Esterase Negative [place]/uL (NEGATIVE) 04/29/17 14:40 Urine RBC 15 - 20 /hpf (0-2) 04/29/17 14:40 Urine WBC 0 - 2 /hpf (0-6) 04/29/17 14:40 Ur Epithelial Cells 0 - 2 /hpf (0-5) 04/29/17 14:40 Urine Bacteria Neg (NEG) 04/29/17 14:40 Urine Myoglobin TNP 04/30/17 15:30 Influenza Typ A,B (EIA) Negative for flu a/b (NEGATIVE) 04/28/17 11:30 - Hospital Course Hospital Course: 81 yo male with PMHx of hypertension biba with complaint of generalized weakness. He states he had cold symptoms the past few days, and when he tried to get out of bed this morning he felt weak and he fell and was down on the floor for >16 hours before he called 911. He denies any focal weakness, pain, fever, chills, nausea, vomiting, abdominal pain, chest pain, dizziness, headache , LOC, any other complaint. Labs in hospital showed an elevated CPK, and pt was found to be in rhabdomomyolysis. Patient was given adequate amounts of IVF. Head CT neg for any acute changes. CT chest abd/pelvis was also negative. Sinuses CT showed pansinusitis. Infectious disease was consulted and pt received 2 days of IV Unsayn. Patient is discharged on Augmentin for total of 10 days. PT evaluation was also obtained. PT recommended home vs TCU. However, pt wants to go home. Discussed with Dr Connor. Discharge Exam - Additional Findings Additional findings: - Constitutional Appears: Non-toxic, No Acute Distress - Head Exam Head Exam: ATRAUMATIC, NORMOCEPHALIC - Eye Exam Eye Exam: EOMI, PERRL. absent: Conjunctival injection, Scleral icterus Pupil Exam: PERRL - ENT Exam ENT Exam: Mucous Membranes Moist - Neck Exam Neck Exam: Full ROM - Respiratory Exam Respiratory Exam: Clear to Ausculation Bilateral. absent: Accessory Muscle Use , Respiratory Distress - Cardiovascular Exam Cardiovascular Exam: RRR, +S1, +S2. absent: Murmur - GI/Abdominal Exam GI & Abdominal Exam: Soft, Normal Bowel Sounds. absent: Distended, Guarding, Tenderness, Organomegaly, Rebound - Extremities Exam Extremities Exam: absent: Calf Tenderness, Pedal Edema - Back Exam Back Exam: NORMAL INSPECTION - Neurological Exam Neurological Exam: Alert, Awake, CN II-XII Intact, Normal Gait, Oriented x3. absent: Motor Sensory Deficit - Psychiatric Exam Psychiatric exam: Normal Affect, Normal Mood - Skin Skin Exam: Dry, Normal Color, Warm Discharge Plan - Discharge Medications Prescriptions: Amoxicillin/Clavulanate [Augmentin 875 MG-125 MG] 1 tab PO BID #20 tab - Follow Up Plan Condition: FAIR Disposition: HOME/ ROUTINE Patient education suggested?: Yes Instructions: Rhabdomyolysis (DC), Weakness (GEN) Additional Instructions: DISCHARGE HOME FOLLOW UP WITHIN 1 WEEK DISCHARGE MEDS PER UPDATED AMBULATORY ORDERS AND NEW SCRIPTS Referrals: Ortiz Connor MD [Primary Care Provider] - 1 Week (DISCHARGE HOME FOLLOW UP WITHIN 1 WEEK DISCHARGE MEDS PER UPDATED AMBULATORY ORDERS AND NEW SCRIPTS)
--- NOTE | 2017-05-03 14:06 | CP.PCM.PN ---
Subjective - Date & Time of Evaluation Date of Evaluation: 05/03/17 Time of Evaluation: 12:55 - Subjective Subjective: Comfortable on a chair, not in distress, afebrile. Objective - Vital Signs/Intake and Output Vital Signs (last 24 hours): Temp Pulse Resp BP Pulse Ox 98.2 F 65 18 132/68 96 05/02/17 16:00 05/03/17 10:16 05/02/17 16:00 05/03/17 10:16 05/02/17 16:00 Intake and Output: 05/03/17 05/03/17 06:59 18:59 Intake Total 960 Output Total 2225 Balance -1265 - Medications Medications: Current Medications Acetaminophen (Tylenol 325mg Tab) 650 mg PO Q6H PRN PRN Reason: Fever >100.4 F Last Admin: 04/28/17 23:30 Dose: 650 mg Albuterol/Ipratropium (Duoneb 3 Mg/0.5 Mg (3 Ml) Ud) 3 ml IH [id number] [facility] Last Admin: 05/03/17 08:41 Dose: 3 ml Alprazolam (Xanax) 0.25 mg PO BID MILENA PRN Reason: Protocol Stop: 05/05/17 18:01 Last Admin: 05/03/17 10:16 Dose: 0.25 mg Home Med (Home Med) 1 unit PO DAILY [facility] Last Admin: 05/03/17 10:17 Dose: Not Given Ampicillin Sodium/Sulbactam Sodium (Unasyn) 1 gm in 100 mls @ 100 mls/hr IVPB Q6 MILENA PRN Reason: Protocol Last Admin: 05/03/17 06:04 Dose: 100 mls/hr Sodium Chloride (Sodium Chloride 0.9%) 1,000 mls @ 150 mls/hr IV .[id number] [facility] Stop: 05/05/17 09:39 Last Admin: 05/02/17 23:00 Dose: 150 mls/hr Pantoprazole Sodium (Protonix Ec Tab) 40 mg PO 0600 [facility] Last Admin: 05/03/17 06:04 Dose: 40 mg Propranolol HCl (Inderal) 20 mg PO Q12 [facility] Last Admin: 05/03/17 10:16 Dose: 20 mg - Labs Labs: 05/02/17 06:45 05/03/17 06:50 PT 12.9 SECONDS (9.4-12.5) H 04/28/17 13:10 INR 1.18 (0.93-1.08) H 04/28/17 13:10 APTT 25.9 Seconds (25.1-36.5) 04/28/17 13:10 - Constitutional Appears: Non-toxic - Head Exam Head Exam: NORMAL INSPECTION - Respiratory Exam Respiratory Exam: Decreased Breath Sounds - Cardiovascular Exam Cardiovascular Exam: +S1, +S2 - GI/Abdominal Exam GI & Abdominal Exam: Soft. absent: Tenderness Assessment and Plan - Assessment and Plan (Free Text) Plan: Assessment R/O acute stover-sinusitis, improving HTN gout dyslipidemia Plan on Unasyn day 3 - can be switched to PO Augmentin to complete 7-10 days of therapy discussed with Dr. Connor
--- NOTE | 2017-05-04 05:02 | DS ---
The patient is seen in room 569 bed 1. HISTORY OF PRESENT ILLNESS: The patient is sitting out of bed to chair, watching TV. Patient appears to be comfortable, in no distress. The patient's overnight nurse's notes were reviewed and no adverse events documented. PHYSICAL EXAMINATION: VITAL SIGNS: T-max 98.2; pulse 66, 76, 65; blood pressure 132/68, 132/80; respiration 18, O2 sat 96%. HEENT: Head: Normocephalic, atraumatic. Examination shows pink conjunctivae. Anicteric sclerae. No oropharyngeal lesion. NECK: No neck rigidity. No carotid bruit. No jugular venous tension. CHEST: Positive kyphosis. LUNGS: Shows occasional rhonchi in upper lung [place]. CARDIOVASCULAR: S1, S2, regular rhythm. Questionable soft systolic murmur in left sternal border, right second intercostal space. ABDOMEN: Soft. No hepatosplenomegaly noted. No costovertebral angle tenderness. No guarding. No rigidity, no rebound tenderness. GENITALIA: Male. RECTAL: Deferred. EXTREMITIES: Shows no pitting, no calf numbness, no Homans sign, no swelling. Positive CHRIST stockings. No clubbing, no cyanosis. VASCULAR: Palpable pulses. MUSCULOSKELETAL: Shows a body mass index of 27. NEUROLOGIC: Cranial nerves II-XII limited. Gait examination is independent. DIAGNOSTICS: From 05/03/2017, sodium 144, potassium 4.0, chloride 106, CO2 of 29, anion gap 12, BUN 12, creatinine 0.9, GFR greater than 60, glucose 87, calcium 9.2, phosphorus 3.4, magnesium 1.9. AST is down to 78, ALT is down to 78. CPK is down to 454 from peak CPK of greater than 15,000. Rest of the LFTs are normal. C. diff antigen and toxin are negative. The patient was seen by infectious disease yesterday. The recommendation is that the patient can be switched over to p.o. Augmentin after 3 days of IV Unasyn which is day 3 today. IMPRESSION: 1. Status post mechanical fall. 2. Acute symptomatic rhabdomyolysis with elevated CPK of greater than 15,000. 3. Hematuria. 4. High-grade fever of 103.4. 5. Systemic inflammatory response syndrome. 6. Hypertension. 7. Thoracic kyphoscoliosis. 8. Microcytic anemia. 9. Granulocytosis. 10. Elevated erythrocyte sedimentation rate. 11. Transient lactic acidosis. 12. Transaminitis. 13. Elevated C-reactive protein of greater than 15. 14. Myoglobinemia. 15. Proteinuria, hematuria. PLAN: At this time, the patient has been cleared for discharge. The patient declined physical therapy, ambulation. The patient is cleared for discharge. DISCHARGE MEDICATIONS: The patient will be discharged home on following medications. The patient will resume his Xanax 0.25 b.i.d. at home. The patient is given Augmentin 875 twice a day for 10 more days, vitamin D (Drisdol) 50,000 units weekly, vitamin B12 1000 mcg IM monthly, Uloric 40 mg daily, hydrochlorothiazide 25 mg daily, Inderal 20 mg twice a day, Crestor 5 mg daily. The patient is also advised to follow up with Dr. Connor within 1 week. Discharge medications as per new scripts and updated ambulatory orders. During this hospitalization, the patient was extensively explained about his diagnoses, test results and recommendation by all the physicians involved in the care of the patient at length and all questions concerned answered, which he acknowledged and understood. Time spent in the entire discharge process was more than 45 minutes. Dictated and electronically signed, not read. Ortiz Connor MD
== END 2017-05-03 17:01 | disposition home or self-care (01) | DRG 558 ==
LOC: ED 10:38 → ERH 15:12 → 5RNO 16:13
PROVIDERS: ADMIT Internal Medicine; ATTEND Internal Medicine
PROC: 3E0F7GC Introduction of Other Therapeutic Substance into Respiratory Tract, Via Natural or Artificial Opening (ICD-10-PCS; principal; 2017-04-30)
DX: M62.82 Rhabdomyolysis (principal); E87.2 Acidosis; K76.0 Fatty (change of) liver, not elsewhere classified; N39.0 Urinary tract infection, site not specified; J98.11 Atelectasis; R31.9 Hematuria, unspecified; M41.9 Scoliosis, unspecified; M10.9 Gout, unspecified; E78.00 Pure hypercholesterolemia, unspecified; E53.8 Deficiency of other specified B group vitamins; E55.9 Vitamin D deficiency, unspecified; F41.9 Anxiety disorder, unspecified; R09.02 Hypoxemia; R80.9 Proteinuria, unspecified; J01.40 Acute pansinusitis, unspecified; D50.9 Iron deficiency anemia, unspecified; I10 Essential (primary) hypertension; M47.814 Spondylosis without myelopathy or radiculopathy, thoracic region; Z91.81 History of falling